=== PATIENT | female | born 1955 | race Caucasian/White ===

== ENCOUNTER 2016-09-16 12:03 | Inpatient (IN) | payer OTHER, MEDICAID ==
[~2016-09-16] VITALS: Ht 165.1 cm; Wt 90.3 kg
[~2016-09-16 12:03] MED LIST: HYDR-1189 PO
[2016-09-16 12:20] VITALS: BP_SYST 166
--- NOTE | 2016-09-16 12:38 | NUR ---
Direct Admit Patient received from Dr Muñoz's office. Patient admitted with diagnosis of Cellulitis of the right hand, Renal Failure , Hyperkalemia . Patient is awake, alert, oriented X 3. Patient oriented to hospital room, call light, toileting, pain management and safety-teach back done. Patient informed that Kathy RN will be nurse and that their room number is 119B. Personal belongings checked and Belongings List documented. Call light within reach.
--- NOTE | 2016-09-16 13:24 | NUR ---
Patient photos taken of all skin issues. Patient IV entered left hand 22g. SL. Success at 1st attempt.
--- NOTE | 2016-09-16 13:31 | NUR ---
Dr Muñoz paged for orders
[2016-09-16] MEDS ORDERED: CLON0.5T4 PO (14:21)
[2016-09-16] MEDS ORDERED: GABA-531 PO (14:22)
[2016-09-16] MEDS ORDERED: MELO15TA13 PO (14:22)
[2016-09-16] MEDS ORDERED: SERT-131 PO (14:23)
--- NOTE | 2016-09-16 15:23 | NUR ---
Dr Toni bailon
--- NOTE | 2016-09-16 15:26 | NUR ---
Consult was called Re: Renal Failure spoke with Norma from Dr Taylor office .
[2016-09-16] MEDS ORDERED: ACETAMINOPHEN 325 MG TABLET PO PRN (15:30)
[2016-09-16] MEDS ORDERED: MILK OF MAGNESIA 30 ML UDC PO PRN ×2 (15:30)
--- NOTE | 2016-09-16 15:32 | NUR ---
Consult was called Re:Cellulitis of both Hands spoke with Jennifer from Dr Womack office .
[2016-09-16] MEDS: HYDROcodone/ACETAMIN 5-325 MG TAB (NORCO/ VICODIN) PO PRN ×2 (15:40→22:17)
--- NOTE | 2016-09-16 15:46 | NUR ---
senior caregiver Norma left and stated that patients senior caregiver ( Her boss from the company, [employer] ) that takes care of the patient will be calling.
[2016-09-16] MEDS ORDERED: CLINDAMYCIN 600 mg/50mL D5W 50 ML IV ONE (16:00)
[2016-09-16 16:02] LABS: BASOPHILS # (AUTO) 0.1 K/uL (0.0-0.2); EOSINOPHILS # (AUTO) 0.2 K/uL (0.0-0.4); MEAN CORPUSCULAR HGB CONC 33 % (32-36); MEAN CORPUSCULAR VOLUME 86 fL (79.0-98.0); MONOCYTES # (AUTO) 0.4 K/uL (0.0-1.0); NEUTROPHILS # (AUTO) 3.9 K/uL (1.8-7.7)
[2016-09-16 16:06] LABS: BASOPHILS % (AUTO) 1.9 % (0.0-2.0); EOSINOPHILS % (AUTO) 3.5 % (0.0-4.0); HEMATOCRIT 33.9 % (36-48); HEMOGLOBIN 11.2 g/dL (12.0-16.0); LYMPHOCYTES # (AUTO) 0.9 K/uL (1.0-5.5); MEAN CORPUSCULAR HEMOGLOBIN 29 pg (27-31); MONOCYTES % (AUTO) 7.1 % (1.7-9.3); NEUTROPHILS % (AUTO) 70.5 % (40.0-70.0); PLATELET COUNT (AUTO) 234 K/uL (130-430); RED BLOOD CELL COUNT(AUTO) 3.93 MIL/uL (4.2-6.2); RED CELL DISTRIBUTION WIDTH 13.9 % (9.0-15.0); WHITE BLOOD COUNT (AUTO) 5.5 K/uL (4.8-10.8)
--- NOTE | 2016-09-16 16:10 | NUR ---
Banerjee Catheter inserted and urine sample sent to lab BANERJEE CATH: # 16 FR Banerjee catheter with 10 cc bulb inserted with use of sterile technique. Bulb inflated with 10 cc sterile water. Immediate return of 200ml clear yellow urine noted. Bedside drainage bag placed below level of bladder. Urine sample collected and sent to lab at 1615. Pt tolerated procedure well.
[2016-09-16 16:21] LABS: ALBUMIN 3.5 g/dL (3.4-4.8); CALCIUM 9.5 mg/dL (8.4-11.0); CREATININE 1.86 mg/dL (0.55-1.30); POTASSIUM 4.8 mmol/L (3.5-5.1); TOTAL BILIRUBIN 0.2 mg/dL (0.0-1.0); TOTAL PROTEIN, SERUM 6.6 g/dL (6.4-8.3)
[2016-09-16 16:26] LABS: BILIRUBIN,URINE NEGATIVE (NEGATIVE); BLOOD, URINE NEGATIVE (NEGATIVE); CLARITY/URINE CLEAR (CLEAR); COLOR,URINE YELLOW (YELLOW); GLUCOSE,URINE NEGATIVE (NEGATIVE); KETONES,URINE NEGATIVE (NEGATIVE); LEUKOCYTE ESTERASE ,URINE NEGATIVE (NEGATIVE); NITRITE, URINE NEGATIVE (NEGATIVE); PH,URINE 7.5 (5.0-8.0); PROTEIN URINE NEGATIVE (NEGATIVE); UROBILINOGEN,URINE 0.2 (0.2-1.0)
--- NOTE | 2016-09-16 16:35 | NUR ---
Patient complaining of pain to her left hip. States she wants "Dilaudid" I Informed her that i asked Dr Muñoz when he made rounds and all he wanted her to have was the Gay. as ordered. Pt request i call MD and ask for a "pain shot."
--- NOTE | 2016-09-16 17:04 | NUR ---
DR ESPINOZA CALLED BACK. INFORMED OF UNRELIEVED PAIN WITH THE NORCO AND PATIENTS REQUEST FOR "PAIN SHOT' NO NEW ORDERS RECEIVED. OK TO GIVE ONCE DOSE NOW OF THE KLONOPIN.
[2016-09-16 17:53] VITALS: BP_SYST 139
--- NOTE | 2016-09-16 18:32 | NUR ---
PT REFUSING TO HAVE THE RENAL US DONE AT THIS TIME, SAYS SHE WANTS IT DONE TOMORROW BECAUSE SHE WANTS PAIN MEDICATION , WHICH SHE TOLD ME ABOUT. I INFORMED HER THAT NO NEW MEDICATION ORDERS WERE GIVEN AT THIS TIME. INFORMED HER THAT WE CAN ADMINISTER THE KLONOPIN AT THIS TIME PER DR ESPINOZA. WILL TRY AND CONVINCE HER TO GET IT DONE.
[2016-09-16] MEDS: clonazePAM 0.5 MG TABLET PO SCH (18:38)
--- NOTE | 2016-09-16 18:39 | NUR ---
Closing note Patient refused to have the US renal at this time, due to pain, administered Klonipin earlier than 2100 as pt stated she had not had any today, and asked dr Muñoz who stated that she can get it earlier. Pt otherwise stable.
--- NOTE | 2016-09-16 18:59 | NUR ---
WOUND CARE Right hand wound cleansed with NS and pat dry. applied Bactorban ointment as ordered by dr Muñoz. covered with foam dressing.
--- NOTE | 2016-09-16 19:45 | NUR ---
OPENING NOTE Pt. and report received from day shift nurse. Pt. is resting quietly in bed with eyes closed. Respirations are even and unlabored with visible chest rise and fall. No s/s of acute distress. IV site to left f/a is dry and intact with no s/s of infiltration at this time. Haider catheter is intact, draining urine by gravity. Safety precautions in place. Bed alarm is on. Will continue to monitor.
[2016-09-16 20:00] VITALS: BP_SYST 136
--- NOTE | 2016-09-16 20:39 | NUR ---
DR. MUÑOZ CALLED RE: LABS Dr. Muñoz asked about pt.'s labs; Pt.'s sodium level of 134, potassium 4.8, bun 26 and creatinine of 1.[address] Muñoz. asked if Dr. Taylor, consult, has seen pt., I reported he was called but has not see pt. yet. Dr. Muñoz gave no new orders.
[2016-09-16] MEDS: LACTOBACILLUS RHAMNOSUS GG 1 CAP CAPSULE PO SCH (21:31)
[2016-09-16] MEDS: GABAPENTIN 300 MG CAPSULE PO SCH (21:31)
[2016-09-16] MEDS: SERTRALINE HCL 50 MG TABLET PO SCH (21:32)
[2016-09-16] MEDS: TEMAZEPAM 15 MG CAPSULE PO PRN (21:32)
[2016-09-16] MEDS: MUPIROCIN 2% TOPICAL OINTMENT 22 GM TP SCH (21:39)
--- NOTE | 2016-09-16 21:49 | NUR ---
DUE MEDS/BACTROBAN/SCDS Due meds administered as ordered. Pt. requested Restoril 15mg PO 1 tab as ordered PRN for insomnia. Administered as ordered. See EMAR. Wound care done to right hand; area cleansed with NS and bactroban applied to affected area. Pt. tolerated well. No s/s of acute distress. Educated and encouraged pt. to use call light for needs. Educated pt. on fall risk and bed alarm. Bed alarm on. Call light moved to right hand. Safety precautions are in place. Bilateral SCDS applied as ordered. Will continue to monitor.
--- NOTE | 2016-09-16 22:17 | NUR ---
PAIN Late entry due to pt. care. Pt. c/o pain to back; pt. given Wainwright 5/325mg 1 tab PO as ordered PRN for moderate pain. See EMAR. Educated pt. regarding medication and s/e. Educated pt. that medication increases her risk for falls and to use call light for needs. Pt. verbalized understanding. Safety and fall precautions in place. Bed alarm on. Call light to right hand. Will continue to monitor.
[2016-09-16] MEDS: CLINDAMYCIN 600 mg/50mL D5W 50 ML IV SCH (23:48)
[2016-09-16 23:53] VITALS: BP_SYST 124
--- NOTE | 2016-09-16 23:58 | NUR ---
CLEOCIN Due cleocin IVPB administered as ordered. Pt. is resting quietly in bed with no s/s of acute distress. Safety precautions in place. Bed alarm on. Call light to right hand. Will continue to monitor.
--- NOTE | 2016-09-17 02:22 | NUR ---
RESTING Pt. is resting quietly in bed with eyes closed. Respirations are even and unlabored with visible chest rise and fall. No s/s of acute distress. Safety and fall precautions are in place. Bed alarm is on. Call light is to pt.'s right hand side. Will continue to monitor.
[2016-09-17 04:15] VITALS: BP_SYST 140
--- NOTE | 2016-09-17 04:23 | NUR ---
RESTING Pt. is resting quietly in bed with eyes closed. Respirations are even and unlabored with visible chest rise and fall. No s/s of acute distress. Safety and fall precautions are in place. Call light to right hand. Bed alarm on. Will continue to monitor.
[2016-09-17] MEDS: CLINDAMYCIN 600 mg/50mL D5W 50 ML IV SCH ×3 (05:16→17:22)
[2016-09-17] MEDS: HYDROcodone/ACETAMIN 5-325 MG TAB (NORCO/ VICODIN) PO PRN ×4 (05:46→23:00)
[2016-09-17 07:45] VITALS: BP_SYST 134
--- NOTE | 2016-09-17 08:00 | NUR ---
OPENING NOTES, PATIENT IN BED, PATIENT IS AAO3, NO C/O PAIN, PATIENT WAS GIVEN PAIN MED AT 0546 AM. NO SOB, NO DISTRESS. PT HAS EDEMATOUS ARMS AND WOUND ON ARMS. IV ACCESS INTACT. INFUSING WELL. CALL LIGHT IN REACH. BED IN LOW POSITION. BANERJEE AT FOOT OF BED. WILL CONT TO MONITOR.
[2016-09-17] MEDS: clonazePAM 0.5 MG TABLET PO SCH ×2 (08:33→21:31)
[2016-09-17] MEDS: GABAPENTIN 300 MG CAPSULE PO SCH ×2 (08:33→21:31)
[2016-09-17] MEDS: LACTOBACILLUS RHAMNOSUS GG 1 CAP CAPSULE PO SCH ×2 (08:33→21:31)
[2016-09-17] MEDS: SERTRALINE HCL 50 MG TABLET PO SCH ×2 (08:34→21:31)
[2016-09-17] MEDS: MUPIROCIN 2% TOPICAL OINTMENT 22 GM TP SCH ×2 (08:44→21:00)
[2016-09-17] MEDS ORDERED: MELOXICAM 7.5 MG TABLET PO SCH (09:00)
--- NOTE | 2016-09-17 09:09 | NUR ---
Nutrition Update Cm Scale 17 noted. Pt admitted for renal failure, hyperkalemia. Diet: renal standard BMI: 33.1 kg/m2 RD to follow per nutrition care standards.
--- NOTE | 2016-09-17 10:00 | NUR ---
ROUNDING NOTES, PATIENT IN BED, C/O PAIN ON R SHOULDER 08/09, TOLD PT THAT PAIN MED IS NOT DUE YET. NO SOB, NO DISTRESS. IV ACCESS INTACT. INFUSING WELL. CALL LIGHT IN REACH. BED IN LOW POSITION. BANERJEE AT FOOT OF BED. WILL CONT TO MONITOR.
--- NOTE | 2016-09-17 12:00 | NUR ---
ROUNDING NOTES, PATIENT IN BED, C/O PAIN ON R SHOULDER 02/08, TOLD PT THAT PAIN MED IS NOT DUE YET AND THAT WE HAVE PAGE DR ESPINOZA,. NO SOB, NO DISTRESS. IV ACCESS INTACT. INFUSING WELL. CALL LIGHT IN REACH. BED IN LOW POSITION. BANERJEE AT FOOT OF BED. WILL CONT TO MONITOR.
[2016-09-17 12:41] VITALS: BP_SYST 135
[2016-09-17] MEDS ORDERED: FUROSEMIDE 20 MG/2 ML VIAL IVP ONE (12:45)
--- NOTE | 2016-09-17 14:34 | NUR ---
dr rodriguez rounding dr chung was here and spoke with patient. told md that patient is still complaining of pain even with the pain medication given.
--- NOTE | 2016-09-17 14:37 | NUR ---
WOUND EVALUATION: Wound Consult received from Dr. Muñoz. Thank you, Dr. Muñoz, for the consult. Patient received in a [place] Bed with a [place] Isoflex ZIGGY mattress, awake, alert, and oriented. Patient is unable to turn independently. Cm Score is a 17. Past Medical History: Hypertension, Chronic Kidney Disease, Depression, Advanced Degenerative Joint Disease, Left total hip replacement. Recent Labs: WBC 5.5, RBC 3.93, Hemoglobin 11.2, Hematocrit 33.9, sodium 134, BUN 26, creatinine 1.86, GFR 19, Glucose 115. No microbiology reports. Intrinsic factors that delay wound healing: Chronic kidney disease. Extrinsic factors that delay wound healing: Decreased mobility. Wound Assessment: 1) Right Dorsal Hand: Wound, present on admission. Wound bed is 90% black eschar, 10% yellow slough. No odor, scant yellow purulent drainage. juliana-wound intact. Measures 2.1 cm x 1.8 cm x 0.5 cm. Recommend: Cleanse wound with normal saline. Place sure prep onto juliana-wound. Put Venelex ointment onto wound bed. Cover with foam dressing. Perform wound care daily, and as needed for dressing soiling or dislodgement. 2) Bilateral Forearms: Multiple dry scabs with black eschar. No odor, no drainage. Dry, stable. Recommend: No dressings needed. Continue to monitor sites every shift. Also recommend: Encourage and assist patient as needed with repositioning every 2 hours with pillow support and off-load pressure areas with pillows for pressure re-distribution. Perform skin care and monitor skin integrity Q shift. Use moisture barrier cream on buttocks and other moisture susceptible areas QID and as needed for soiling. Addendum: 09/17/16 at 1452 by Monty Ayers RN Juliana-wound erythematous for Wound 1).
--- NOTE | 2016-09-17 16:00 | NUR ---
CRISTINE NOTES, PATIENT IN BED, COMPLAIN OF PAIN 5/10, WILL MEDICATE WHEN DUE. TOLD MD THAT PAIN IS NOT RESOLVED WITH CURRENT PAIN MED, NO NEW ORDERS GIVEN. WILL CONT TO MONITOR.
[2016-09-17 16:53] VITALS: BP_SYST 129
--- NOTE | 2016-09-17 16:53 | NUR ---
DC Planning: Met with pt at bedside for leadership rounding-pt requested me to call her caregiver Latia and let her know Dr. Muñoz might discharge her tomorrow. I explained to Latia that Dr. Muñoz will evaluate her tomorrow and make the decision after he evaluates her. I did call Latia at pt's request at #[phone] and gave her update that pt requested me to call her and that Dr. Muñoz will see pt tomorrow. Latia indicates pt has appointment with tree topper Dr. Taylor at the end of the month also, and aware there is nephrology consult for pt here inpt. ALTON LONGO
[2016-09-17] MEDS ORDERED: VANCOMYCIN HCL 750 MG in NS 250 ML IV ONE (18:30)
--- NOTE | 2016-09-17 18:30 | NUR ---
CLOSING NOTES, PATIENT REMAINED ALERT AND ORIENTED, NO UNTOWARD INCIDENT THIS SHIFT. BANERJEE PATENT AND INTACT. IN ACCESS CHANGED .ALL MED OFFERED AND TAKEN. PAIN MEDS GIVEN REQUESTED. SAFETY PRECAUTION IN PLACE. WILL ENDORSE TO NIGHT RN.
[2016-09-17 19:00] VITALS: BP_SYST 141
--- NOTE | 2016-09-17 19:00 | NUR ---
OPENING NOTES REPORT GIVEN AT BEDSIDE. PATIENT AOX4. PATIENT SITTING UPRIGHT AND SMILING. NO S/S OF ACUTE DISTRESS NOTED. BANERJEE PATENT AND INTACT. IV PATENT AND TKO. BED IN LOWEST POSITION, CALL LIGHT WITHIN REACH. WILL CONTINUE TO MONITOR.
[2016-09-17] MEDS ORDERED: VANCOMYCIN HCL 500 MG in NS 100 ML IV ONE (20:30)
[2016-09-17] MEDS: BALSAM PERU/CASTOR OIL 60 GM OINT...G. TP SCH (21:00)
[2016-09-17] MEDS: TEMAZEPAM 15 MG CAPSULE PO PRN (21:32)
[2016-09-17] MEDS ORDERED: VANCOMYCIN HCL 500 MG/VIAL IV ONE (22:01)
--- NOTE | 2016-09-17 23:05 | NUR ---
PAIN PATIENT COMPLAINED OF PAIN 10/10, MEDICATION GIVEN ORDERED.
[2016-09-17 23:51] VITALS: BP_SYST 134
[2016-09-18] MEDS ORDERED: VANCOMYCIN HCL 500 MG/VIAL IV ONE (00:27)
[2016-09-18] MEDS: CLINDAMYCIN 600 mg/50mL D5W 50 ML IV SCH ×5 (00:56→23:44)
--- NOTE | 2016-09-18 01:13 | NUR ---
ROUNDS PATIENT SLEEPING WITH VISIBLE RISE AND FALL OF CHEST, AUDIBLY SNORING. NO S/S OF ACUTE DISTRESS NOTED. IV ANTIBIOTICS INFUSING WITH NO SIGNS OF INFILTRATION. FALL PRECAUTIONS IN PLACE, CALL LIGHT WITHIN REACH. WILL CONTINUE TO MONITOR.
--- NOTE | 2016-09-18 03:05 | NUR ---
ROUNDS PATIENT SLEEPING, STABLE, NO CHANGE IN CONDITION.
[2016-09-18 04:00] VITALS: BP_SYST 123
--- NOTE | 2016-09-18 05:00 | NUR ---
ROUNDS PATIENT IS SLEEPING, NO CHANGE IN CONDITION.
[2016-09-18] MEDS: HYDROcodone/ACETAMIN 5-325 MG TAB (NORCO/ VICODIN) PO PRN ×4 (06:18→23:44)
--- NOTE | 2016-09-18 06:49 | NUR ---
CLOSING NOTES PATIENT IS AWAKE AND IN GOOD SPIRITS RESTING COMFORTABLY. WOUND CARE PERFORMED ON CELLULITIS OF HANDS, SLIGHT WEEPING. IV PATENT WITHOUT SIGNS OF INFILTRATION. NO ACUTE S/S OF DISTRESS NOTED. ALL NEEDS MET THROUGHOUT THE SHIFT. FALL PRECAUTIONS IN PLACE, CALL LIGHT WITHIN REACH. WILL ENDORSE CARE TO DAYSHIFT NURSE.
[2016-09-18 07:27] LABS: BASOPHILS % (AUTO) 0.5 % (0.0-2.0); EOSINOPHILS # (AUTO) 0.3 K/uL (0.0-0.4); EOSINOPHILS % (AUTO) 4.2 % (0.0-4.0); HEMATOCRIT 37.9 % (36-48); HEMOGLOBIN 12.5 g/dL (12.0-16.0); LYMPHOCYTES # (AUTO) 1.2 K/uL (1.0-5.5); LYMPHOCYTES % (AUTO) 18.5 % (20.5-51.5); MEAN CORPUSCULAR HEMOGLOBIN 28 pg (27-31); MEAN CORPUSCULAR HGB CONC 33 % (32-36); MEAN CORPUSCULAR VOLUME 86 fL (79.0-98.0); MONOCYTES # (AUTO) 0.4 K/uL (0.0-1.0); MONOCYTES % (AUTO) 6.7 % (1.7-9.3); NEUTROPHILS # (AUTO) 4.5 K/uL (1.8-7.7); NEUTROPHILS % (AUTO) 70.1 % (40.0-70.0); PLATELET COUNT (AUTO) 279 K/uL (130-430); RED BLOOD CELL COUNT(AUTO) 4.41 MIL/uL (4.2-6.2); RED CELL DISTRIBUTION WIDTH 14.2 % (9.0-15.0); WHITE BLOOD COUNT (AUTO) 6.4 K/uL (4.8-10.8)
[2016-09-18 07:38] LABS: ALBUMIN 3.6 g/dL (3.4-4.8); CALCIUM 9.3 mg/dL (8.4-11.0); CREATININE 2.05 mg/dL (0.55-1.30); POTASSIUM 4.2 mmol/L (3.5-5.1); TOTAL BILIRUBIN 0.2 mg/dL (0.0-1.0); TOTAL PROTEIN, SERUM 7.3 g/dL (6.4-8.3)
[2016-09-18 07:43] VITALS: BP_SYST 132; BP_SYST 149
[2016-09-18] MEDS: clonazePAM 0.5 MG TABLET PO SCH ×2 (08:30→20:11)
[2016-09-18] MEDS: GABAPENTIN 300 MG CAPSULE PO SCH ×2 (08:30→20:11)
[2016-09-18] MEDS: SERTRALINE HCL 50 MG TABLET PO SCH ×2 (08:30→20:12)
[2016-09-18] MEDS: LACTOBACILLUS RHAMNOSUS GG 1 CAP CAPSULE PO SCH ×2 (08:30→20:11)
[2016-09-18] MEDS: FUROSEMIDE 20 MG/2 ML VIAL IVP SCH (08:30)
[2016-09-18] MEDS: MUPIROCIN 2% TOPICAL OINTMENT 22 GM TP SCH ×2 (08:42→20:12)
[2016-09-18] MEDS: BALSAM PERU/CASTOR OIL 60 GM OINT...G. TP SCH ×2 (08:42→20:13)
--- NOTE | 2016-09-18 10:15 | NUR ---
PATIENT REQUEST FOR BENADRYL FOR ITCHING PER CHARGE NURSE. WILL NOTIFY MD ON ROUNDS. PATIENT SAYS SHE HAS A GOOD PAIN MEDICATION, NORCO FOR HER SHOULDER AND BACK PAIN. SITE OF DRESSING ON RIGHT HAND CHANGED WITH INTERVENTION PER CARE PLAN.
[2016-09-18 12:00] VITALS: BP_SYST 115
--- NOTE | 2016-09-18 12:09 | NUR ---
Patient rounds for follow up on norco dose. Patient pain decreased. Says she is ready to go home.
--- NOTE | 2016-09-18 13:53 | NUR ---
Rounds to patient. Needs met at this time. Snack provided. IV site check. Verified antibiotic dose.
--- NOTE | 2016-09-18 15:54 | NUR ---
Rounds to patient. Offered ice and heat until pm norco can be given around 1800. Patient notes her dose would be do at 4pm. Will evaluate for time.
[2016-09-18 16:22] VITALS: BP_SYST 132
--- NOTE | 2016-09-18 16:31 | NUR ---
PATIENT ROUNDS. PATIENT FEELING ANXIOUS AT THIS TIME WITH PAIN. GIVEN PRN FOR PAIN REQUESTED.
--- NOTE | 2016-09-18 17:03 | NUR ---
Call to patient attending MD per request of patient. MD Muñoz call and will round soon. Notified patient. Put on video of kittens playing to soothe patient concerns about her health.
[2016-09-18] MEDS ORDERED: VANCOMYCIN HCL 1,000 MG in NS 250 ML IV SCH (18:00)
--- NOTE | 2016-09-18 18:31 | NUR ---
PATIENT ROUNDS AND GIVEN INFORMATION FROM DOCTOR GRISELDA'S NOTE THAT KIDNEYS ARE IMPROVING. PATIENT ATTRIBUTES THIS TO LASIX. PATIENT CALMING DOWN AFTER WATCHING VIDEO OF KITTENS AND HEARING ABOUT HER KIDNEY HEALTH.
--- NOTE | 2016-09-18 19:23 | NUR ---
Handoff report for noc nurse.
[2016-09-18 19:42] VITALS: BP_SYST 128
--- NOTE | 2016-09-18 19:46 | NUR ---
Initial Notes Received patient laying in bed, awake, alert, oriented, anxious. Patient denies any acute distress or pain at this time. Vital signs stable. Breathing is even and unlabored on room air. IV site patent/clean/dry. Wound noted to right hand, dressing clean/dry/intact. Haiedr draining yellow urine to gravity. Educated patient on use of call light for assistance and fall precautions, patient verbalized understanding. Call light in hand, fall precautions in place. Will continue to monitor.
[2016-09-18] MEDS: TEMAZEPAM 15 MG CAPSULE PO PRN (21:28)
--- NOTE | 2016-09-18 22:00 | NUR ---
Rounds Patient resting in bed bed, awake. Patient denies any acute distress or pain at this time. Dr. Muñoz was in to see patient during MD rounds. Haider discontinued per MD order, tip intact, patient tolerated well. Informed patient to notify nurse once patient voids, patient verbalized understanding. Needs addressed. Call light in hand, will continue to monitor.
--- NOTE | 2016-09-19 | NUR ---
Rounds Patient resting in bed with eyes closed, easily aroused. Patient denies any acute distress or pain at this time. Breathing is even and unlabored. IV site patent/clean/dry. Needs addressed. Call light in hand, fall precautions in place. Will continue to monitor.
[2016-09-19 00:15] VITALS: BP_SYST 142
--- NOTE | 2016-09-19 02:00 | NUR ---
Round Patient resting in bed with eyes closed. No acute distress noted, breathing is even and unlabored. Call light in hand, will continue to monitor.
--- NOTE | 2016-09-19 04:26 | NUR ---
Rounds Patient resting in bed, awake. Patient denies any acute distress or pain at this time. Breathing is even and unlabored. Patient noted she has voided since removal of Haider catheter. Needs addressed. Call light in hand, will continue to monitor.
[2016-09-19 05:12] VITALS: BP_SYST 122
[2016-09-19] MEDS: CLINDAMYCIN 600 mg/50mL D5W 50 ML IV SCH ×3 (05:38→17:55)
[2016-09-19] MEDS: HYDROcodone/ACETAMIN 5-325 MG TAB (NORCO/ VICODIN) PO PRN ×3 (05:39→17:00)
--- NOTE | 2016-09-19 06:37 | NUR ---
Closing Notes Patient resting in bed with eyes closed, easily aroused. Patient denies any acute distress or pain at this time. Breathing is even and unlabored. IV site patent/clean/dry, no S/S infection/infiltration noted. All needs addressed throughout shift. Call light in hand, fall precautions in place. Will continue to monitor for changes and safety, and endorse all patient care/needs to oncoming nurse.
[2016-09-19 06:55] LABS: CALCIUM 9.2 mg/dL (8.4-11.0); CREATININE 2.1 mg/dL (0.55-1.30); POTASSIUM 4.3 mmol/L (3.5-5.1)
[2016-09-19 06:59] LABS: BASOPHILS % (AUTO) 0.6 % (0.0-2.0); EOSINOPHILS # (AUTO) 0.4 K/uL (0.0-0.4); EOSINOPHILS % (AUTO) 7.3 % (0.0-4.0); HEMATOCRIT 38.5 % (36-48); HEMOGLOBIN 12.7 g/dL (12.0-16.0); LYMPHOCYTES # (AUTO) 1.1 K/uL (1.0-5.5); LYMPHOCYTES % (AUTO) 20.3 % (20.5-51.5); MEAN CORPUSCULAR HEMOGLOBIN 29 pg (27-31); MEAN CORPUSCULAR HGB CONC 33 % (32-36); MEAN CORPUSCULAR VOLUME 87 fL (79.0-98.0); MONOCYTES # (AUTO) 0.4 K/uL (0.0-1.0); MONOCYTES % (AUTO) 7.3 % (1.7-9.3); NEUTROPHILS # (AUTO) 3.4 K/uL (1.8-7.7); NEUTROPHILS % (AUTO) 64.5 % (40.0-70.0); PLATELET COUNT (AUTO) 271 K/uL (130-430); RED BLOOD CELL COUNT(AUTO) 4.43 MIL/uL (4.2-6.2); RED CELL DISTRIBUTION WIDTH 14.3 % (9.0-15.0); WHITE BLOOD COUNT (AUTO) 5.4 K/uL (4.8-10.8)
--- NOTE | 2016-09-19 08:00 | NUR ---
initial notes rec patient awake alert with hob elevated. ivl on the l forearm intact. no infiltration noted.denies chest pain at this time. bed in low position and side rails up and ,call light within reached and knows when to call for assists. will continue to monitor patient.
[2016-09-19 08:10] VITALS: BP_SYST 141
[2016-09-19] MEDS: clonazePAM 0.5 MG TABLET PO SCH ×2 (09:24→20:42)
[2016-09-19] MEDS: SERTRALINE HCL 50 MG TABLET PO SCH ×2 (09:24→20:42)
[2016-09-19] MEDS: GABAPENTIN 300 MG CAPSULE PO SCH ×2 (09:24→20:43)
[2016-09-19] MEDS: LACTOBACILLUS RHAMNOSUS GG 1 CAP CAPSULE PO SCH ×2 (09:24→20:42)
[2016-09-19] MEDS: FUROSEMIDE 20 MG/2 ML VIAL IVP SCH (09:29)
[2016-09-19] MEDS: BALSAM PERU/CASTOR OIL 60 GM OINT...G. TP SCH (09:29)
--- NOTE | 2016-09-19 10:00 | NUR ---
rounds resting comfortably at this time. no sob noted.
--- NOTE | 2016-09-19 12:00 | NUR ---
rounds due meds given as ordered. resting comfortably.
[2016-09-19 12:20] VITALS: BP_SYST 131
--- NOTE | 2016-09-19 16:00 | NUR ---
rounds no sob noted. watching tv.
[2016-09-19 16:54] VITALS: BP_SYST 138
[2016-09-19] MEDS ORDERED: CLIN-77 PO (17:08)
[2016-09-19] MEDS ORDERED: MUPI1OIN4 TP (17:12)
--- NOTE | 2016-09-19 18:00 | NUR ---
rounds seen by dr mckeon and with order to be d.cd/ wound care on the r hand was done. no sob noted.
--- NOTE | 2016-09-19 18:30 | NUR ---
closing notes friend was called and will come and hand picker patient at 1999. no sob noted. ambulating on the hallway.
[2016-09-19 18:49] VITALS: BP_SYST 138
--- NOTE | 2016-09-19 20:00 | NUR ---
ROUNDS PATIENT SITTING UP IN THE CHAIR, NOT IN DISTRESS, VITALS STABLE, DENIES ANY PAIN AND DISCOMFORT AT THIS TIME. PATIENT READY FOR DISCHARGE HOME ORDERED, WAITING FOR FAMILY TO PICK HER UP. DISCHARGE INSTRUCTIONS DONE AND PATIENT VERBALIZED UNDERSTANDING. PATIENT BELONGINGS ALREADY CHECKED BY A.M. NURSE. ALL NEEDS ATTENDED TO. CALL LIGHT PLACED WITH PATIENT.
--- NOTE | 2016-09-19 21:30 | NUR ---
CLOSING NOTES PATIENT DISCHARGED TO HOME ORDERED VIA WHEELCHAIR TO THE OUTSIDE WITH STABLE VITAL SIGNS. DENIES ANY PAIN AND DISCOMFORT AT THIS TIME. IV D/CD, ALL BELONGINGS CHECKED.
== END 2016-09-19 21:30 | disposition home or self-care (01) | DRG 602 ==
LOC: STU 12:03 → SMU 09-18 20:59
PROVIDERS: ADMIT Family Medicine; ATTEND Family Medicine
DX: L03.114 Cellulitis of left upper limb (principal); N17.0 Acute kidney failure with tubular necrosis; L03.113 Cellulitis of right upper limb; E11.622 Type 2 diabetes mellitus with other skin ulcer; L98.499 Non-pressure chronic ulcer of skin of other sites with unspecified severity; N18.3 Chronic kidney disease, stage 3 (moderate); I12.9 Hypertensive chronic kidney disease with stage 1 through stage 4 chronic kidney disease, or unspecified chronic kidney disease; E03.9 Hypothyroidism, unspecified; E11.22 Type 2 diabetes mellitus with diabetic chronic kidney disease; M19.90 Unspecified osteoarthritis, unspecified site; F32.9 Major depressive disorder, single episode, unspecified; G89.4 Chronic pain syndrome; Z96.642 Presence of left artificial hip joint; Z87.891 Personal history of nicotine dependence; Z88.6 Allergy status to analgesic agent; Z88.8 Allergy status to other drugs, medicaments and biological substances; Z86.010 Personal history of colon polyps; Z87.442 Personal history of urinary calculi; Z79.899 Other long term (current) drug therapy
CPT/HCPCS: 36415; 76770; 80048; 80053; 81003; 85025; 87081; J1940; J3370; J3490; J7050; J7060

== ENCOUNTER 2018-11-29 16:30 | Inpatient (IN) | payer OTHER, MEDICAID ==
[~2018-11-29] VITALS: Ht 165.1 cm; Wt 103.5 kg
[~2018-11-29 16:30] MED LIST changes: +CLIN300C11 PO; +CLON0.5T12 PO; +GABA-531 PO; +MUPI1OIN4 TP; +SERT-131 PO
--- NOTE | 2018-11-29 17:15 | NUR ---
Note Pt came to floor/room from admission office ambulatory with caregiver by her side and admitting staff member at this time. Pt was oriented to room and nursing routines/procedures. Call light within reach. Pt was given hospital gown and tele unit was attached at this time as well. Pt's caregiver will take all pt's belongings home except thermos flask and cell phone at this time. Admission assessment started at this time. Questions/concerns were answered at this time. Admission questions H&P were also answered by pt's caregiver when pt did not remember information. Pt has large bruise under right arm which is tender and sore to touch. Bruise very purple.
[2018-11-29 17:30] VITALS: BP_SYST 119
[2018-11-29] MEDS ORDERED: BENZ2AMP PO (17:53)
[2018-11-29] MEDS ORDERED: FESO4TAB PO (17:53)
[2018-11-29] MEDS ORDERED: ARIP20TA4 PO (17:53)
--- NOTE | 2018-11-29 18:00 | NUR ---
ADMISSION: RECEIVED PT FROM HOME, DIRECT ADMIT, DX: RISK FOR FLUID VOLUME DEFICIT, R/T ACUTE RENAL FAILURE, PT IS A/A/OX4, VSS, SR ON TELEMONITOR, AFEBRILE, BREATHING UNLABORED, O2 SAT=98%, IV 24G INSERTED TO RIGHT HAND X 3 ATTEMPTS, ORIENTED TO UNIT, MEAT COOLER AT BEDSIDE, CALL LIGHT PLACED WITHIN REACH, WILL CON'T TO MONITOR AND ASSESS.
--- NOTE | 2018-11-29 18:00 | NUR ---
Note Report was given to Crys LONGO for continuation of care. Dr Muñoz called with orders for diet and diagnosis. Labs drawn stat and Dr Muñoz will come in to see pt this evening. Several attempts were made to start IV - all unsuccessful at this time. Call light within reach. Pt's credit risk officer at bedside since admission to floor.
--- NOTE | 2018-11-29 18:33 | NUR ---
Paged Dr. Muñoz
--- NOTE | 2018-11-29 18:50 | NUR ---
VISIT: AT BEDSIDE FOR ASSESSMENT OF PT, NEW ORDERS GIVEN, WILL CON'T WITH POC.
[2018-11-29 19:00] VITALS: BP_SYST 116
--- NOTE | 2018-11-29 19:00 | NUR ---
END OF SHIFT: PT REMAINS STABLE, NEEDS MET, NO CHANGES NOTED AT THIS TIME, CALL LIGHT WITHIN REACH, WILL ENDORSE TO AMMONIA PRINT OPERATOR NURSE.
[2018-11-29 19:07] LABS: BASOPHILS # (AUTO) 0.1 K/uL (0.0-0.2); BASOPHILS % (AUTO) 1.1 % (0.0-2.0); EOSINOPHILS # (AUTO) 0.1 K/uL (0.0-0.4); EOSINOPHILS % (AUTO) 2.2 % (0.0-4.0); HEMATOCRIT 36.4 % (36-48); HEMOGLOBIN 12.2 g/dL (12.0-16.0); LYMPHOCYTES # (AUTO) 0.9 K/uL (1.0-5.5); LYMPHOCYTES % (AUTO) 13.2 % (20.5-51.5); MEAN CORPUSCULAR HEMOGLOBIN 30 pg (27-31); MEAN CORPUSCULAR HGB CONC 33 % (32-36); MEAN CORPUSCULAR VOLUME 89 fL (79.0-98.0); MONOCYTES # (AUTO) 0.4 K/uL (0.0-1.0); MONOCYTES % (AUTO) 6.5 % (1.7-9.3); PLATELET COUNT (AUTO) 218 K/uL (130-430); RED CELL DISTRIBUTION WIDTH 16.7 % (9.0-15.0); WHITE BLOOD COUNT (AUTO) 6.5 K/uL (4.8-10.8)
--- NOTE | 2018-11-29 19:15 | NUR ---
change of shift.pt.presrn quiescetna ffctc;claudia.viewing tv programming.corrosion control engineer in the room.p.tprsetn genral [email or web address] recent fall hisptry;pt.prsrn ecchymosis; :location;rt.forwrm;bicpet;large diameyer.absent denuded skin.iv acces ;loaction;#24g;rt.wrist;inner aspect. pttio submit to midline:placement.call light/telephone w/in the reach of the pt.
[2018-11-29 19:24] LABS: CALCIUM 8.9 mg/dL (8.4-11.0); CREATININE 2.2 mg/dL (0.55-1.30); POTASSIUM 4.1 mmol/L (3.5-5.1)
[2018-11-29 19:28] LABS: ALBUMIN 3.4 g/dL (3.4-4.8); TOTAL BILIRUBIN 0.2 mg/dL (0.0-1.0)
[2018-11-29 20:00] VITALS: BP_SYST 116
--- NOTE | 2018-11-29 20:00 | NUR ---
pt.assessed.v/s assessed;values w/in normal limits.pt.stated she presents slight pain.i am to review the emar:med-list. re:pain medication orders.i have apprised the pt.that snacks/beverages are available w/in the shift.pt had requests coffee/pudding/myrtle crackers.i have provided the snacks/coffee.pt.activity status;bedrest.pt.reminded to eleanor for assistance; bedpan.iv access assessed;intact;patent.pt.capable to reposition self.call light/telephone placed w/in the reach of the pt.
--- NOTE | 2018-11-29 20:15 | NUR ---
i had reviewed th emar;med-list i apprised th pt.that neurontin/lyrica ordered.scheduled:pt.had requested ultram;pain, pt.had requested medication;sleep.i am to page the admit md;.
--- NOTE | 2018-11-29 20:30 | NUR ---
the picc line nsg;fabi had telephoned;sdch to confirm the order for picc line placement.i apprised the picc line nsg;the consent was signed per ne toney.the picc line nsg;fabi inquired if the pt.presents renal hx;pt.presents acute renal failure;chronic renal status; absent h/d access lines/av-shunts:nor has the pt.submitted to hemo-dialysis therapy.picc line nsg apprised me that the renal hx of the pt.requires a hydrogen braze furnace operator to consent to the placement of a picc line.;hydrogen braze furnace operator to be paged re;picc line placement.
--- NOTE | 2018-11-29 20:51 | NUR ---
Paged Dr. Taylor, Dr. Perez is confidential secretary s/w [employer]
--- NOTE | 2018-11-29 21:00 | NUR ---
returned the page.i apprised of the pt's requests;ultram;pain. ordered ultram;50mg po tid;schduled.i apprised the pt's requests for medication;sleep. ordered restoril;15mg po;q-hs/p;sleep. i apprised of the picc line placement; had ordered the consent;day shift had not placed the order via the computer.i have attended to the order placement;picc line placement per ;via the computer. Addendum: 12/02/18 at 0403 by Mike Boswell RN i have administered lasix;20mg ivp via extant iv access;#24g;rt.wrist;inner aspect. iv access assessed p/t administration of the lasix;intact;patent.
--- NOTE | 2018-11-29 21:15 | NUR ---
;screen printer;on-call has returned the paged.i have apprised that the pt.is ordered to submit to the placement of;picc line/mid-line;re;the screen printer;pt.presents renal hx;picc kathie kraft had stated per picc line placement policy:the pt.presents hx;renal the screen printer must provide consent for the placement:picc line placement. stated he was not familiar w/the pt.and that will make the decision in the am; post assessment of the pt.:11/30/18.
--- NOTE | 2018-11-29 21:30 | NUR ---
2100p medications administered;per medication reconciliation.i have administered:ultram;50mg po.i have administered:restoril;15mg po.to f/u re;pain medication efficacy per pain mgx protocol.no additional requests posited@this hour.
[2018-11-29] MEDS: ARIPiprazole 5 MG TAB PO SCH (21:36)
[2018-11-29] MEDS: FUROSEMIDE 20 MG/2 ML VIAL IVP SCH (21:36)
[2018-11-29] MEDS: clonazePAM 0.5 MG TABLET PO SCH (21:37)
[2018-11-29] MEDS: BENZTROPINE MESYLATE 1 MG TABLET PO SCH (21:37)
[2018-11-29] MEDS: SERTRALINE HCL 50 MG TABLET PO SCH (21:37)
[2018-11-29] MEDS: TEMAZEPAM 15 MG CAPSULE PO PRN (21:37)
[2018-11-29] MEDS: GABAPENTIN 100 MG CAPSULE PO SCH (21:37)
[2018-11-29] MEDS: traMADol HCL HCL 50 MG TABLET (ULTRAM) PO PRN (21:39)
--- NOTE | 2018-11-29 21:45 | NUR ---
i paged the picc line nsg;fabi.i apprised the nsg that i had conveyed the information;picc line policy;that financial health counselor must provide consent for the picc line/mid-line placement per pt's renal hx.that ;financial health counselor had declined to provide consent for the picc line/mid-line placement and that the decision is deferred to in the am;11/30/18. picc line nsg stated to have the day-shift nsg telephone him via the main telephone line;not his cell-phone# in the am when the financial health counselor has provided the consent to proceed w/the picc line/mid-line placement.
--- NOTE | 2018-11-29 22:00 | NUR ---
pt.assessed.pt.presents quiescent affect;calm,somnolent.general status stable.respiratory status stable. pt.capable to reposition self.call light/telephone placed w/in the reach of the pt.
--- NOTE | 2018-11-30 | NUR ---
pt.assessed.v/s assessed.pt.presents quiescent affect;calm somnolent.no c/o pain,nausea.iv access;intact;patent. general status stable.respiratory status stable;unlabored.pt.capable to reposition self.call light/telephone w/in the reach of the pt.
[2018-11-30 01:29] VITALS: BP_SYST 104
--- NOTE | 2018-11-30 01:30 | NUR ---
[place] of Care Handoff report received from Armand at the bedside. Patient is resting comfortably in bed, eyes closed. Breathing even and unlabored with visible chest rise and fall noted. No SOB, no acute distress, no complaints of pain or discomfort at this time. IV site intact, dressing C/D/I, saline locked. Bed is locked, in the lowest position, 3x side rails up, bed alarm is on. Call light is within reach. Will continue with plan of care.
--- NOTE | 2018-11-30 01:30 | NUR ---
i have re-assigned to the unit;icu.i have conveyed the pt's report/data to tana.
--- NOTE | 2018-11-30 04:00 | NUR ---
Patient resting comfortably in bed, eyes closed. Breathing even and unlabored with visible chest rise and fall noted. NO SOB, no acute distress, no signs of pain or facial grimacing. stable.
[2018-11-30] MEDS: traMADol HCL HCL 50 MG TABLET (ULTRAM) PO PRN ×2 (06:47→18:43)
--- NOTE | 2018-11-30 06:47 | NUR ---
Patient complaining of right upper arm pain. Provided patient with Ultram PRN per MD order, see eMAR for details. Will continue to monitor patient.
--- NOTE | 2018-11-30 06:54 | NUR ---
Nutrition Update Cm Scale 18 noted. Pt admitted for Acute Renal Failure Diet: Renal Standard 2gm Na 3gm K 1gm Phos BMI: 36.4 kg/m2 RD to follow per nutrition care standards.
--- NOTE | 2018-11-30 07:40 | NUR ---
Closing Notes Handoff report given to oncoming dayshift nurse [place] at the bedside. Patient is AAOx3, resting comfortably in bed. No SOB, no acute distress, no complaints of pain at this time. Bed is locked, in the lowest position, 2x side rails up, bed alarm is on. Call light is within reach. Fall and safety precautions maintained. All needs have been met during this shift.
[2018-11-30 08:00] VITALS: BP_SYST 90
--- NOTE | 2018-11-30 08:00 | NUR ---
initial notes rec patient awake alert with periods of foregetfulness. ivl; on the r wrist inatct. seen by dr morel and and orderdd picc line to be inserted. fabi was called by unit betsy silva , awaiting to call back.
[2018-11-30 08:12] LABS: BASOPHILS % (AUTO) 0.6 % (0.0-2.0); EOSINOPHILS # (AUTO) 0.1 K/uL (0.0-0.4); EOSINOPHILS % (AUTO) 2.4 % (0.0-4.0); HEMATOCRIT 34.3 % (36-48); HEMOGLOBIN 11.3 g/dL (12.0-16.0); LYMPHOCYTES # (AUTO) 0.9 K/uL (1.0-5.5); LYMPHOCYTES % (AUTO) 17.5 % (20.5-51.5); MEAN CORPUSCULAR HEMOGLOBIN 30 pg (27-31); MEAN CORPUSCULAR HGB CONC 33 % (32-36); MEAN CORPUSCULAR VOLUME 90 fL (79.0-98.0); MONOCYTES # (AUTO) 0.4 K/uL (0.0-1.0); NEUTROPHILS # (AUTO) 3.9 K/uL (1.8-7.7); NEUTROPHILS % (AUTO) 72.5 % (40.0-70.0); PLATELET COUNT (AUTO) 197 K/uL (130-430); RED BLOOD CELL COUNT(AUTO) 3.83 MIL/uL (4.2-6.2); RED CELL DISTRIBUTION WIDTH 16.3 % (9.0-15.0); WHITE BLOOD COUNT (AUTO) 5.3 K/uL (4.8-10.8)
[2018-11-30 08:21] LABS: ALBUMIN 3.1 g/dL (3.4-4.8); CALCIUM 8.6 mg/dL (8.4-11.0); CREATININE 2.25 mg/dL (0.55-1.30); TOTAL BILIRUBIN 0.3 mg/dL (0.0-1.0)
[2018-11-30] MEDS: FUROSEMIDE 20 MG/2 ML VIAL IVP SCH ×2 (09:00→21:35)
[2018-11-30] MEDS: GABAPENTIN 100 MG CAPSULE PO SCH ×2 (09:05→21:35)
[2018-11-30] MEDS: clonazePAM 0.5 MG TABLET PO SCH ×2 (09:05→21:35)
--- NOTE | 2018-11-30 09:41 | NUR ---
CONSULT REASON FOR CONSULT: CKD STAGE 3 PERSON I SPOKE WITH: MAYA CONSULTING PHYSICIAN: DR. VILLALOBOS RECORD RETRIEVAL SPECIALIST PHONE NUMBER: [phone] ORDERING PHYSICIAN: DR. GRANADOS
--- NOTE | 2018-11-30 09:42 | NUR ---
CONSULTATION PAGED/CALLED Reason for Consultation: [] CKD STAGE 3 Person Who was Notified: [] RAMOS Consulting Physician: [] DR VILLALOBOS (DR RGANADOS MACHINE ADJUSTER LEADER CASE TRIM) Instructor Hairspring Specialty: [] NEPHROLOGY Ordering Physician: [] DR Nilsa GRANADOS
[2018-11-30 10:19] LABS: INR 0.9 (0.8-1.2); PROTHROMBIN TIME 9.2 SECS (9.5-12.5)
[2018-11-30 11:57] VITALS: BP_SYST 112
--- NOTE | 2018-11-30 12:00 | NUR ---
rounds bp was rechecked but bp still low. still waiting maris dunlap was called again. roma supervisor respiratory was asked to call picc line nurse again.
[2018-11-30 16:06] VITALS: BP_SYST 121
--- NOTE | 2018-11-30 18:00 | NUR ---
closing notes awaiting for the picc line nurse to insert a midline or picc line. no sob noted. endorsed that lasix was not given bec of low bp. no osb noted. bed to the lowest position.
[2018-11-30 19:20] VITALS: BP_SYST 112
--- NOTE | 2018-11-30 19:20 | NUR ---
OPENING NOTE RECEIVED ENDORSEMENT REPORT FROM DAY NURSE IMELDA AT BEDSIDE. PT RESTING IN BED, AOX4, IN NO ACUTE DISTRESS. PT DENIES PAIN OR DISCOMFORT. BREATHING IS UNLABORED TO ROOM AIR. IV CLEAN, DRY AND INTACT. BANERJEE CLEAN AND INTACT, BANERJEE EMPTYING TO GRAVITY. EDUCATED PT ON HOW TO USE CALL LIGHT AND ROOM PHONE. PT VERBALIZED UNDERSTANDING. SAFETY PRECAUTIONS ARE IN PLACE: BED IS LOCKED IN LOWEST POSITION, CALL LIGHT IS WITH PT, SIDE RAILS UP X2, BED ALARM ON. WILL CONTINUE POC AND MONITOR PT.
--- NOTE | 2018-11-30 20:00 | NUR ---
RN ROUNDS PT RESTING IN BED, IN NO ACUTE DISTRESS. PT DENIES PAIN OR DISCOMFORT. BREATHING IS UNLABORED TO ROOM AIR. VITAL SIGNS WNL. SAFETY PRECAUTIONS ARE IN PLACE. WILL CONTINUE POC AND MONITOR PT.
--- NOTE | 2018-11-30 20:30 | NUR ---
PICC LINE NURSE IBETH CALLED TO CONFIRM PICC PLACEMENT CONSENT SIGNED BY PATIENT AND MD. ETA 5 MIN PER NURSE
--- NOTE | 2018-11-30 20:45 | NUR ---
PICC LINE NURSE IBETH AT BEDSIDE
--- NOTE | 2018-11-30 21:21 | NUR ---
NURSE CRISTINA INSERTED MIDLINE ON KRISTA, DOUBLE LUMEN, ARM CIRCUMFERENCE 36CM, CATH 13 CM
[2018-11-30] MEDS: TEMAZEPAM 15 MG CAPSULE PO PRN (21:35)
[2018-11-30] MEDS: ARIPiprazole 5 MG TAB PO SCH (21:35)
[2018-11-30] MEDS: BENZTROPINE MESYLATE 1 MG TABLET PO SCH (21:35)
[2018-11-30] MEDS: SERTRALINE HCL 50 MG TABLET PO SCH (21:36)
--- NOTE | 2018-11-30 21:45 | NUR ---
RN ROUNDS PT RESTING IN BED, IN NO ACUTE DISTRESS. PT DENIES PAIN OR DISCOMFORT. BREATHING IS UNLABORED TO ROOM AIR. VITAL SIGNS WNL. SCHEDULED MEDICATIONS ADMINISTERED ORDERED. PT TOLERATED WELL. SAFETY PRECAUTIONS ARE IN PLACE. WILL CONTINUE POC AND MONITOR PT.
--- NOTE | 2018-11-30 22:50 | NUR ---
RN ROUNDS PT RESTING IN BED, IN NO ACUTE DISTRESS. PT DENIES PAIN OR DISCOMFORT. BREATHING IS UNLABORED TO ROOM AIR. NO NEEDS AT THIS TIME. SAFETY PRECAUTIONS ARE IN PLACE. WILL CONTINUE POC AND MONITOR PT.
--- NOTE | 2018-12-01 00:40 | NUR ---
RN ROUNDS PT RESTING IN BED, IN NO ACUTE DISTRESS. NO S/S OF PAIN NOTED. BREATHING IS UNLABORED TO ROOM AIR. SAFETY PRECAUTIONS ARE IN PLACE. WILL CONTINUE POC AND MONITOR PT.
[2018-12-01 00:57] VITALS: BP_SYST 124
--- NOTE | 2018-12-01 04:55 | NUR ---
RN ROUNDS PT RESTING IN BED WITH EYES CLOSED. PT IN NO ACUTE DISTRESS. NO S/S OF PAIN NOTED. NO NEEDS AT THIS TIME. SAFETY PRECAUTIONS ARE IN PLACE. WILL CONTINUE POC AND MONITOR PT.
--- NOTE | 2018-12-01 07:01 | NUR ---
CLOSING NOTE PT RESTING IN BED, AAOX4, IN NO ACUTE DISTRESS. PT DENIES PAIN OR DISCOMFORT. BREATHING IS UNLABORED TO ROOM AIR. ALL SCHEDULED MEDICATIONS ADMINISTERED ORDERED. ALL NEEDS MET THROUGHOUT SHIFT. SAFETY PRECAUTIONS ARE IN PLACE. WILL CONTINUE TO MONITOR UNTIL PT CARE IS ENDORSED TO DAY SHIFT RN
[2018-12-01 08:33] VITALS: BP_SYST 118
[2018-12-01] MEDS: clonazePAM 0.5 MG TABLET PO SCH ×2 (09:12→20:54)
[2018-12-01] MEDS: GABAPENTIN 100 MG CAPSULE PO SCH ×2 (09:12→20:54)
[2018-12-01] MEDS: FUROSEMIDE 20 MG/2 ML VIAL IVP SCH ×2 (09:13→20:54)
[2018-12-01] MEDS: traMADol HCL HCL 50 MG TABLET (ULTRAM) PO PRN ×3 (09:14→20:55)
--- NOTE | 2018-12-01 10:00 | NUR ---
rounds due meds given as ordered. no sob noted. call light within reached.
--- NOTE | 2018-12-01 12:00 | NUR ---
rounds denies pain , no acute distress noted.
[2018-12-01 12:34] VITALS: BP_SYST 119
--- NOTE | 2018-12-01 14:36 | NUR ---
rounds sleeps at intervals . no sob noted.
--- NOTE | 2018-12-01 16:00 | NUR ---
CASE MANAGEMENT: RECEIVED A CALL FROM KACEY KHAN (REGIONAL AVIATION TECHNICIAN AIRCRAFT ) @ . KACEY CONFIRMED THAT [facility] IS THE SUPPORTIVE LIVING SKILLS PROGRAM THAT IS FUNDED BY THE [facility]. KACEY ROSA IS THE MAIN CAREGIVER THAT TAKES PATIENT TO DOCTORS APPOINTMENT AND HELP WITH ADLS AT HOME. PATIENT HAS ALSO CAREGIVER PATRICIA ALCOCER THAT COMES IN 6X WEEK AT 4HOURS PER DAY M-SAT THRU [facility]. PER KACEY, LONG PATIENT IS ALERT AND ORIENTED. PATIENT IS NOT CONSERVED. PATIENT HAS TWO DAUGHTERS BUT ACCORDING TO ABILIO THE CAREGIVER THEY ARE NOT ABLE TO MAKE DECISIONS ON BEHALF OF PATIENT. PATIENT HAS BEEN ON HOME HEALTH SERVICES BEFORE BUT KACEY DOES NOT HAVE THE NAME OF THE AGENCY. NEED TO ASK RAMOS LEE REGARDING HOME HEALTH AGENCY BEFORE. PATIENT PREFERS TO GO HOME UPON DISCHARGE AND WAS NOT OPEN TO SNF. DUE TO PATIENT WAS VERY CONCERN OF HER EX-, WHO CURRENTLY LIVES WITH HER, STATED THAT HER EX- WILL GO OUT TO THE STREETS. IF SHE IS NOT HOME FOR A LONG TIME. REGIONAL AVIATION TECHNICIAN AIRCRAFT WOULD WANT TO BE CONTACTED UPON PATIENT DISCHARGE.
[2018-12-01 16:50] VITALS: BP_SYST 121
--- NOTE | 2018-12-01 19:18 | NUR ---
Opening Note Received bedside report with patient in bed sitting. AAOx3 and able to verbalize her needs. No respiratory distress. Left Upper arm Midline, patent with no s/s of infiltration. Blood return and flushed with 10ml NS. Haider in place draining by gravity yellow and clear. Oriented the patient to the room and use of the call light. Call light placed within reach. Belongings within reach. Will monitor patient for change in condition on rounds.
[2018-12-01 20:00] VITALS: BP_SYST 128
[2018-12-01] MEDS: ARIPiprazole 5 MG TAB PO SCH (20:55)
[2018-12-01] MEDS: SERTRALINE HCL 50 MG TABLET PO SCH (20:55)
[2018-12-01] MEDS: BENZTROPINE MESYLATE 1 MG TABLET PO SCH (20:55)
--- NOTE | 2018-12-01 22:34 | NUR ---
Patient sitting up in 45 deg in bed asleep with audible breath sounds heard. No facial grimacing of pain. no respiratory distress noted. will continue to monitor on rounds.
--- NOTE | 2018-12-02 00:20 | NUR ---
Patient in bed with eyes closed and audible breath sounds. No pain or respiratory distress noted at this time. will cont to monitor on rounds.
[2018-12-02 00:44] VITALS: BP_SYST 112
--- NOTE | 2018-12-02 02:04 | NUR ---
Patient in bed resting. Does not need anything at this time. States no pain or respiratory distress. Will cont to monitor on rounds.
--- NOTE | 2018-12-02 03:35 | NUR ---
Patient refusing Blood Draw at this time. Patient was informed and educated but still refused.
--- NOTE | 2018-12-02 04:42 | NUR ---
No change in condition.
[2018-12-02] MEDS: traMADol HCL HCL 50 MG TABLET (ULTRAM) PO PRN ×3 (05:09→17:25)
--- NOTE | 2018-12-02 06:28 | NUR ---
Closing Notes No change from initial assessment. Call light within reach and all needs have been met. Safety precautions in place and will endorse care to oncoming nurse.
[2018-12-02 08:01] VITALS: BP_SYST 123; BP_SYST 126
--- NOTE | 2018-12-02 08:10 | NUR ---
OPENING NOTE patient resting in bed A&O x4, patient denies any acute distress or pain, breathing is even and unlabored on room air, educated patient on plan of care and call light system, midline dressing clean dry and intact, awad catheter draining well by gravity, will continue to monitor, safety precautions in place, call light within reach, bed alarm on.
[2018-12-02] MEDS: clonazePAM 0.5 MG TABLET PO SCH ×2 (08:32→20:33)
[2018-12-02] MEDS: GABAPENTIN 100 MG CAPSULE PO SCH ×2 (08:32→20:33)
[2018-12-02] MEDS: FUROSEMIDE 20 MG/2 ML VIAL IVP SCH ×2 (08:32→20:33)
--- NOTE | 2018-12-02 10:45 | NUR ---
NOTES PATIENT WALKING AROUND FLOOR WITH PHYSICAL THERAPY USING WALKER, PATIENT TOLERATING WELL, BREATHING IS EVEN AND UNLABORED ON ROOM AIR, NO PAIN OR DISTRESS AT THIS TIME, WILL CONTINUE TO MONITOR, SAFETY PRECAUTIONS IN PLACE.
[2018-12-02 12:14] VITALS: BP_SYST 102
--- NOTE | 2018-12-02 12:51 | NUR ---
NOTES patient is eating lunch in bed, patient denies any acute distress, pain is controlled at this time, breathing is even and unlabored on room air, will continue to monitor, safety precautions in place, call light within reach.
--- NOTE | 2018-12-02 14:43 | NUR ---
NOTES patient is resting in bed A&O x4, patient denies any acute distress, pain is controlled at this time, breathing is even and unlabored on room air, will continue to monitor, safety precautions in place, call light within reach.
[2018-12-02 14:52] LABS: BASOPHILS % (AUTO) 0.4 % (0.0-2.0); EOSINOPHILS # (AUTO) 0.1 K/uL (0.0-0.4); HEMATOCRIT 36.3 % (36-48); HEMOGLOBIN 11.9 g/dL (12.0-16.0); LYMPHOCYTES # (AUTO) 0.8 K/uL (1.0-5.5); LYMPHOCYTES % (AUTO) 12.5 % (20.5-51.5); MEAN CORPUSCULAR HEMOGLOBIN 29 pg (27-31); MEAN CORPUSCULAR HGB CONC 33 % (32-36); MEAN CORPUSCULAR VOLUME 89 fL (79.0-98.0); MONOCYTES # (AUTO) 0.5 K/uL (0.0-1.0); MONOCYTES % (AUTO) 7.2 % (1.7-9.3); NEUTROPHILS % (AUTO) 77.9 % (40.0-70.0); PLATELET COUNT (AUTO) 239 K/uL (130-430); RED BLOOD CELL COUNT(AUTO) 4.08 MIL/uL (4.2-6.2); RED CELL DISTRIBUTION WIDTH 16.3 % (9.0-15.0); WHITE BLOOD COUNT (AUTO) 6.5 K/uL (4.8-10.8)
[2018-12-02 15:04] LABS: CREATININE 2.18 mg/dL (0.55-1.30); POTASSIUM 3.7 mmol/L (3.5-5.1)
[2018-12-02 16:13] VITALS: BP_SYST 121
--- NOTE | 2018-12-02 16:50 | NUR ---
NOTES patient is resting in bed A&O x4, dressings on bilateral arms changed, patient is having pain in her shoulder, educated patient on pain management and medication schedule, patient verbalized understanding, will continue to monitor, safety precautions in place, call light within reach.
--- NOTE | 2018-12-02 18:26 | NUR ---
CLOSING NOTE patient is resting in bed eating dinner, pain is controlled at this time, breathing is even and unlabored on room air, patient denies any acute distress, awad catheter draining well by gravity, all needs were met throughout shift, will endorse report to oncoming nurse, safety precautions in place, call light within reach.
--- NOTE | 2018-12-02 19:15 | NUR ---
Initial Note Received patient awake, alert and oriented with forgetfulness. No SOB noted. Denies any pain or n/v at this time. VS stable. Patient just finished dinner. Midline noted on KRITSA. F/C intact and draining well with yellow colored urine. Dressing on BUE CDI. Mild edema noted on BLE-elevated on pillows. Care and monitoring will be provided per protocol. Call light within reach. Bed alarm on and at lowest position at all times. Needs attended. Kept warm and comfortable.
[2018-12-02 20:00] VITALS: BP_SYST 134
--- NOTE | 2018-12-02 20:30 | NUR ---
RN Note Due meds given, tolerated well. No other complaints. Assist in repositioning. Elevated BLE on pillows. Kept warm and comfortable.
[2018-12-02] MEDS: BENZTROPINE MESYLATE 1 MG TABLET PO SCH (20:33)
[2018-12-02] MEDS: ARIPiprazole 5 MG TAB PO SCH (20:33)
[2018-12-02] MEDS: SERTRALINE HCL 50 MG TABLET PO SCH (20:38)
--- NOTE | 2018-12-02 22:30 | NUR ---
RN Note Patient sleeping at this time. No SOB or grimacing noted.
--- NOTE | 2018-12-03 01:00 | NUR ---
RN Note Asleep, moves occasionally. Repositions herself. No distress noted.
[2018-12-03 01:36] VITALS: BP_SYST 122
--- NOTE | 2018-12-03 03:30 | NUR ---
RN Note Patient sleeping comfortably in bed. Self reposition. No signs of acute distress.
--- NOTE | 2018-12-03 06:02 | NUR ---
End Note Afebrile. VS stable. No complain of pain, SOB or n/v throughout the night. Repositions self. Adequate urine output from F/C. Dressings on BUE CDI. PT was ordered for the patient. Encouraged to eat more and offered some snacks. Midline catheter patent and intact. Care and monitoring provided per protocol. Call light within reach. Bed alarm on and at lowest position at all times. Needs attended. Kept warm and comfortable.
[2018-12-03 08:03] VITALS: BP_SYST 95
--- NOTE | 2018-12-03 08:10 | NUR ---
OPENING NOTE patient resting in bed A&O x4, patient denies any acute distress or pain at this time, breathing is even and unlabored on room air, awad catheter draining well by gravity, educated patient on plan of care and call light system, will continue to monitor, safety precautions in place, call light within reach.
[2018-12-03] MEDS: clonazePAM 0.5 MG TABLET PO SCH ×2 (08:31→21:13)
[2018-12-03] MEDS: GABAPENTIN 100 MG CAPSULE PO SCH ×2 (08:31→21:13)
[2018-12-03] MEDS: FUROSEMIDE 20 MG/2 ML VIAL IVP SCH ×3 (09:00→21:12)
[2018-12-03] MEDS: traMADol HCL HCL 50 MG TABLET (ULTRAM) PO PRN ×3 (09:05→21:14)
--- NOTE | 2018-12-03 10:35 | NUR ---
NOTES patient is resting in bed watching tv, patient denies any acute distress or pain at this time, breathing is even and unlabored on room air, awad catheter draining well by gravity, will continue to monitor, safety precautions in place, call light within reach.
--- NOTE | 2018-12-03 12:13 | NUR ---
NOTES patient eating lunch in bed a this time, patient denies any acute distress or pain, breathing is even and unlabored on room air, awad catheter draining well by gravity, will continue to monitor, safety precautions in place, call light within reach.
[2018-12-03 13:17] VITALS: BP_SYST 120
--- NOTE | 2018-12-03 14:50 | NUR ---
NOTES patient is resting in bed, daughters are at bedside, patient denies any acute distress, pain is controlled at this time, breathing is even and unlabored on room air, awad catheter draining well by gravity, will continue to monitor, safety precautions in place, call light within reach.
--- NOTE | 2018-12-03 16:47 | NUR ---
MD ROUNDS Dr. Nicole assessed patient in bed, MD ordered to remove awad, will remove awad.
--- NOTE | 2018-12-03 16:56 | NUR ---
DC BANERJEE BANERJEE REMOVED AT THIS TIME, WILL MONITOR FOR FIRST URINATION.
[2018-12-03 17:03] VITALS: BP_SYST 127
--- NOTE | 2018-12-03 18:27 | NUR ---
CLOSING NOTE patient is resting in bed eating dinner, pain is controlled at this time, breathing is even and unlabored on room air, patient denies any acute distress, still waiting for first void, all needs were met throughout shift, will endorse report to oncoming nurse, safety precautions in place, call light within reach.
[2018-12-03 19:00] VITALS: BP_SYST 130
--- NOTE | 2018-12-03 19:15 | NUR ---
change of shift.pt.presents quiescent affect;calm,viewing tv programming.pt.presents mid-line;lt.antecubital fossa.intact; iv lock.general status stable.respiratory status stale@room air.call light/telephone w/in the reach of the pt.
[2018-12-03 20:00] VITALS: BP_SYST 130
--- NOTE | 2018-12-03 20:00 | NUR ---
pt.assessed.v/s assessed;values w/in normal limits.i have apprised the pt.that snacks/beverages are available w/in the shift. no requests posited @this hour.i have removed the dinner tray.pt.had inquired when the pain medication;ultram is due.i have stated w/the 2100p medications hour.pt.assessed for cleanliness.pt.repositioned.general status stable.respiratory statu stable @room air.call light/telephone placed w/in the reach of the pt. Addendum: 12/04/18 at 0350 by Mike Boswell RN i have placed the sign;nsg/pt.alert;mid-line;location;lt.antecubital;fossa.
--- NOTE | 2018-12-03 21:00 | NUR ---
2100p medications administered;ultram;pain.t fu re;pain medication efficacy per pain mgx protocol.no requests posited @this hour.
[2018-12-03] MEDS: ARIPiprazole 5 MG TAB PO SCH (21:12)
[2018-12-03] MEDS: BENZTROPINE MESYLATE 1 MG TABLET PO SCH (21:12)
[2018-12-03] MEDS: SERTRALINE HCL 50 MG TABLET PO SCH (21:13)
[2018-12-03] MEDS: TEMAZEPAM 15 MG CAPSULE PO PRN (21:13)
--- NOTE | 2018-12-03 22:00 | NUR ---
pt.assessed.pt.presents quiescent affect;calm,somnolent.pt.assessed for cleanliness.pt.repositioned.genral status stable. respiratory status stable@room air.call light/telephone placed w/in the reach of the pt.
[2018-12-04] VITALS: BP_SYST 125
--- NOTE | 2018-12-04 | NUR ---
pt.assessed.v/s assessed;values w/in normal limits.no c/o pain,nausea.pt.assessed for cleanliness.pt.repositioned. mid line assessed;intact.general status stable.respiratory status stable.call light/telephone w/in placed w/in the reach of the pt.
--- NOTE | 2018-12-04 02:00 | NUR ---
pt.assessed.pt.presents quiescent affect;calm,somnolent.pt.assessed for cleanliness.pt.repositioned.general status stable.respiratory status stable.call light/telephone placed w/in the reach of the pt.
--- NOTE | 2018-12-04 04:00 | NUR ---
pt.assessed.pt.presents quiescent affect;calm somnolent.pt assessed for cleanliness. pt.repositioned,general status stable.respiratory status stable.call light/telephone placed w/in reach of the pt.
--- NOTE | 2018-12-04 06:30 | NUR ---
pt.assessed.pt.assessed for cleanliness.pt.repositioned.i have attended to the dsg changes.no c/o pain,nausea, no requests posted @this hour.call light/telephone placed w/in the reach of the pt.
[2018-12-04 07:43] LABS: ALBUMIN 3.4 g/dL (3.4-4.8); CALCIUM 9.1 mg/dL (8.4-11.0); CREATININE 2.34 mg/dL (0.55-1.30); POTASSIUM 3.5 mmol/L (3.5-5.1); TOTAL BILIRUBIN 0.3 mg/dL (0.0-1.0)
[2018-12-04 07:44] LABS: BASOPHILS % (AUTO) 0.8 % (0.0-2.0); EOSINOPHILS # (AUTO) 0.2 K/uL (0.0-0.4); EOSINOPHILS % (AUTO) 3.2 % (0.0-4.0); HEMOGLOBIN 12.4 g/dL (12.0-16.0); LYMPHOCYTES # (AUTO) 0.9 K/uL (1.0-5.5); LYMPHOCYTES % (AUTO) 14.8 % (20.5-51.5); MEAN CORPUSCULAR HEMOGLOBIN 30 pg (27-31); MEAN CORPUSCULAR HGB CONC 34 % (32-36); MEAN CORPUSCULAR VOLUME 89 fL (79.0-98.0); MONOCYTES # (AUTO) 0.4 K/uL (0.0-1.0); MONOCYTES % (AUTO) 6.2 % (1.7-9.3); NEUTROPHILS # (AUTO) 4.4 K/uL (1.8-7.7); PLATELET COUNT (AUTO) 246 K/uL (130-430); RED BLOOD CELL COUNT(AUTO) 4.18 MIL/uL (4.2-6.2); RED CELL DISTRIBUTION WIDTH 16.1 % (9.0-15.0); WHITE BLOOD COUNT (AUTO) 5.9 K/uL (4.8-10.8)
[2018-12-04 07:55] VITALS: BP_SYST 114
--- NOTE | 2018-12-04 07:55 | NUR ---
INITIAL ROUNDS Received pt AAOx4, no s/s resp distress, no c/o pain or discomfort. Plan of care for the day reviewed with pt-pt verbalized her understanding. Pain management, disease process, skin and safety discussed-teach back done. Call light within reach.
[2018-12-04] MEDS: clonazePAM 0.5 MG TABLET PO SCH ×2 (10:05→21:57)
[2018-12-04] MEDS: GABAPENTIN 100 MG CAPSULE PO SCH ×2 (10:05→21:56)
[2018-12-04] MEDS: FUROSEMIDE 20 MG/2 ML VIAL IVP SCH (10:06)
[2018-12-04] MEDS: traMADol HCL HCL 50 MG TABLET (ULTRAM) PO PRN ×3 (10:12→23:37)
--- NOTE | 2018-12-04 10:15 | NUR ---
ROUNDS/CLEANED Pt incontinent of urine, pt cleaned up, fresh linens and chux placed, clean gown put on pt. Pt now sitting up in bed finishing her breakfast. C/o right shoulder pain-Ultram given as ordered. Call light within reach.
--- NOTE | 2018-12-04 13:50 | NUR ---
Nutrition Assessment (short note d/t lack of time) A- RD reviewed pt's current EMR including diet Hx, physician notes, nursing notes, pertinent labs/meds/procedures, care trends and care activity. Primary Dx: ARF. Current Diet Order: Renal Standard 2gm Na 3gm K, 1gm Phos x 5 days. Pt seen resting in bed, covered in blankets at time of RD visit. Pt reported of good appetite, and that she usually eats food from restaurants. She did not provide much nutrition information. Per EMR, PO intake 85% x 3 days. Pt denied any abd discomfort, chewing or swallowing problem, food allergy or any supplement use. Pt declined education when RD offered. Ht: 5'5 Wt: 228 lb, 104 kg %IBW: 182 IBW: 125 lb, 57 kg Adj IBW: 151 lb, 69 kg ESTIMATED NUTRITIONAL REQUIREMENTS CALORIES/DAY: 5692-0807 kcal/day (25-30 kcal/kg Adj IBW for chronic illness) PROTEIN/DAY: 55-83 gm/day (0.8-1.2 gm/kg Adj IBW for Renal Dz predialysis and maintenance) FLUID/DAY: per MD (Renal Dz) D: Obese Class II r/t lifestyle factors AEB frequent consumption of high calorie food and beverages from restaurants and BMI 38 kg/m2. I: Recommend: Continuing Renal standard diet per MD orders. M: Monitor appetite and PO intake w/ goal of pt meeting at least 75% of estimated nutritional needs, labs trending WNL, normal GI function, skin integrity/wt maintenance. E: RD to F/U MR within 3-5 days [facility], YORDAN
--- NOTE | 2018-12-04 14:13 | NUR ---
ROUNDS Pt resting quietly in bed with no s/s resp distress, no c/o pain or discomfort. Needs met, call light within reach.
--- NOTE | 2018-12-04 15:49 | NUR ---
ROUNDS Pt urinated large amount of yellow urine, pt cleaned up and fresh chux and linens placed. Pt repositioned for comfort and skin care. Call light within reach.
[2018-12-04 16:15] VITALS: BP_SYST 118
--- NOTE | 2018-12-04 17:15 | NUR ---
SKIN CARE Dressing to left hand dislodged by pt, new dressing placed. Area cleansed with normal saline, hydrogel placed to wound bed, oil emulsion dressing put in place, covered with foam dressing. Wound bed 100% pink, no odor, minimal drainage, no necrotic tissue noted.
--- NOTE | 2018-12-04 18:34 | NUR ---
CLOSING NOTE Pt resting quietly in bed with no s/s resp distress, no c/o pain or discomfort. Needs met, all precautions remain in place, call light within reach.
--- NOTE | 2018-12-04 19:10 | NUR ---
Bedside report obtained from day shift nurse. Pt is fully awake and alert. No c/o pain or discomfort and no acute distress noted. Midline in KRISTA noted with the dressing dry and intact. Fall and safety precautions are in place. Call light is with pt and bed alarm is on. Pt was instructed to call for assistance as needed and pt verbalized understanding.
[2018-12-04 20:00] VITALS: BP_SYST 104
--- NOTE | 2018-12-04 21:30 | NUR ---
Pt was incontinent of large amount of clear yellowish urine. Incontinent care given and partial linen change done.
[2018-12-04] MEDS: SERTRALINE HCL 50 MG TABLET PO SCH (21:56)
[2018-12-04] MEDS: BENZTROPINE MESYLATE 1 MG TABLET PO SCH (21:56)
[2018-12-04] MEDS: ARIPiprazole 5 MG TAB PO SCH (21:57)
--- NOTE | 2018-12-04 23:37 | NUR ---
Pt c/o 10/09 right shoulder pain. Tramadol 50mg was given po per pt's request.
[2018-12-05] VITALS: BP_SYST 114
--- NOTE | 2018-12-05 01:30 | NUR ---
Pt is sleeping quietly in bed. Call light is with pt and bed alarm is on.
--- NOTE | 2018-12-05 03:30 | NUR ---
Pt is sleeping comfortably in bed. Fall and safety precautions are in place.
--- NOTE | 2018-12-05 05:00 | NUR ---
Pt is resting quietly in bed. No c/o pain or discomfort. Call light is with pt and bed alarm is on.
--- NOTE | 2018-12-05 06:30 | NUR ---
Pt is awake and resting quietly in bed. No acute distress noted at this time. Fall and safety precautions are in place. Will endorse to day shift nurse.
[2018-12-05 08:25] LABS: CALCIUM 9.1 mg/dL (8.4-11.0); CREATININE 2.26 mg/dL (0.55-1.30); POTASSIUM 3.4 mmol/L (3.5-5.1)
[2018-12-05] MEDS ORDERED: FUROSEMIDE 20 MG/2 ML VIAL IVP SCH (09:00)
[2018-12-05] MEDS: GABAPENTIN 100 MG CAPSULE PO SCH (10:24)
[2018-12-05] MEDS: traMADol HCL HCL 50 MG TABLET (ULTRAM) PO PRN (10:25)
[2018-12-05] MEDS: clonazePAM 0.5 MG TABLET PO SCH (10:26)
--- NOTE | 2018-12-05 10:44 | NUR ---
Discharge Planning: DCP faxed referral to Amandeep Aguilar (f [phone] p [phone]) DCP to follow up. Addendum: 12/05/18 at 1104 by Katherine Rivera DP [place] (f [phone] p [phone]) accepted Rm 32B per Laurie. Addendum: 12/05/18 at 1529 by Katherine Rivera DP [place] (f [phone] p [phone]) Rm 32B, [place] ([phone]) 5:00pm P/U Packet taken to nurse station.
[2018-12-05 12:50] VITALS: BP_SYST 111
--- NOTE | 2018-12-05 14:34 | NUR ---
DC PLANNING: CM SPOKE WITH PATIENT AND PATIENT'S CAREGIVER (PATRICIA) AT BEDSIDE AND DISCUSSED DC PLANNING TO SNF. PATIENT HAD AGREED TO SNF AND AGREED TO RECOMMENDED SNF BY DR. ESPINOZA. WHICH IS [facility] SN[facility]. CM ATTEMPTED TO CONTACT PATIENT'S SLS WORKER/ [facility] CAREGIVER (RAMOS) TO INFORM OF THE DC PLANNING. HOWEVER, WAS UNAVAILABLE. CM LEFT A VOICE MESSAGE. CM ALSO ATTEMPTED TO CONTACT PATIENT'S REGIONAL DELIVERY CLERK ( KACEY KHAN ) @ TO INFORM OF THE DC PLAN. HOWEVER, WAS UNAVAILABLE. CM LEFT A VOICE MESSAGE. CM TO FOLLOW UP NEEDED.
[2018-12-05 16:28] VITALS: BP_SYST 116
--- NOTE | 2018-12-05 17:04 | NUR ---
Informed: Spoke to Norma Wray (caregiver) and informed her that patient will be transferred to [place] at 5pm today and she will inform Jeimy Marquez from [facility].
[2018-12-05 17:14] VITALS: BP_SYST 127
--- NOTE | 2018-12-05 18:07 | NUR ---
AT THE BEGINNING OF THE SHIFT PT. IN BED RESTING QUIETLY,ROOM AIR,CALL LIGHT IN REACH,SR UP X 3, BED ALARM ON,WILL MONITOR.
--- NOTE | 2018-12-05 18:32 | NUR ---
AT 1750 PT.ALERT,ORIENTED,CALM,DISCHARGED TO SNF VIA STRETCHER/AMBULANCE, REPORT GIVEN TO THE RECEIVING FACILITY NURSE MAGGIE
--- NOTE | 2018-12-05 18:43 | NUR ---
LEFT UPPER ARM MIDLINE D/C UPON D/C NO BLEEDING,COVER WITH 4X4/TAPE
== END 2018-12-05 17:48 | DRG 682 ==
LOC: SMU 17:00 → STU 17:09 → SMU 12-01 10:50
PROVIDERS: ADMIT Family Medicine; ATTEND Family Medicine
PROC: 05HY33Z Insertion of Infusion Device into Upper Vein, Percutaneous Approach (ICD-10-PCS; principal; 2018-11-30)
PROC: B54NZZA Ultrasonography of Left Upper Extremity Veins, Guidance (ICD-10-PCS; 2018-11-30)
DX: I12.9 Hypertensive chronic kidney disease with stage 1 through stage 4 chronic kidney disease, or unspecified chronic kidney disease (principal); G93.41 Metabolic encephalopathy; N17.9 Acute kidney failure, unspecified; N18.4 Chronic kidney disease, stage 4 (severe); M19.90 Unspecified osteoarthritis, unspecified site; E66.3 Overweight; F17.200 Nicotine dependence, unspecified, uncomplicated; F32.9 Major depressive disorder, single episode, unspecified; R29.6 Repeated falls; Z96.642 Presence of left artificial hip joint; F41.9 Anxiety disorder, unspecified; Z88.5 Allergy status to narcotic agent; Z88.9 Allergy status to unspecified drugs, medicaments and biological substances; Z68.38 Body mass index [BMI] 38.0-38.9, adult
CPT/HCPCS: 36415; 80048; 80053; 83735-TC; 85025; 85610-TC; 85730-TC; C1751; G0378; J1940

== ENCOUNTER 2019-04-04 16:38 | Inpatient (IN) | payer OTHER, MEDICAID ==
[~2019-04-04] VITALS: Ht 165.1 cm; Wt 109.8 kg
[~2019-04-04 16:38] MED LIST changes: +ARIP20TA4 PO; +BENZ2AMP PO; -CLIN300C11 PO; +FESO4TAB PO; -HYDR-1189 PO; -SERT-131 PO
[2019-04-04 18:13] VITALS: BP_SYST 149
[2019-04-04] MEDS ORDERED: ESCI10TA PO (18:13)
[2019-04-04] MEDS ORDERED: FURO-150 PO (18:13)
[2019-04-04] MEDS ORDERED: CALC-823 PO (18:13)
[2019-04-04] MEDS ORDERED: MELO15TA13 PO (18:13)
[2019-04-04] MEDS ORDERED: BENZ2TAB65 PO (18:13)
[2019-04-04] MEDS ORDERED: CHOL500037 PO (18:13)
[2019-04-04] MEDS ORDERED: FUROSEMIDE 40 MG/4 ML VIAL IVP ONE (18:53)
[2019-04-04 19:10] LABS: BASOPHILS % (AUTO) 0.7 % (0.0-2.0); EOSINOPHILS # (AUTO) 0.1 K/uL (0.0-0.4); EOSINOPHILS % (AUTO) 2.4 % (0.0-4.0); HEMATOCRIT 39.7 % (36-48); LYMPHOCYTES # (AUTO) 0.9 K/uL (1.0-5.5); LYMPHOCYTES % (AUTO) 14.8 % (20.5-51.5); MEAN CORPUSCULAR HEMOGLOBIN 29 pg (27-31); MEAN CORPUSCULAR HGB CONC 33 % (32-36); MEAN CORPUSCULAR VOLUME 88 fL (79.0-98.0); MONOCYTES # (AUTO) 0.8 K/uL (0.0-1.0); MONOCYTES % (AUTO) 12.7 % (1.7-9.3); NEUTROPHILS # (AUTO) 4.4 K/uL (1.8-7.7); NEUTROPHILS % (AUTO) 69.4 % (40.0-70.0); PLATELET COUNT (AUTO) 256 K/uL (130-430); RED CELL DISTRIBUTION WIDTH 15.9 % (9.0-15.0); WHITE BLOOD COUNT (AUTO) 6.3 K/uL (4.8-10.8)
[2019-04-04 19:24] LABS: ALBUMIN 3.7 g/dL (3.4-4.8); CALCIUM 10.1 mg/dL (8.4-11.0); CREATININE 2.48 mg/dL (0.55-1.30); POTASSIUM 4.3 mmol/L (3.5-5.1); TOTAL BILIRUBIN 0.2 mg/dL (0.0-1.0)
[2019-04-04] MEDS: NORMAL SALINE 5 ML DISP.SYRIN IVF SCH ×2 (19:43→21:59)
[2019-04-04 21:55] VITALS: BP_SYST 130
[2019-04-04] MEDS: GABAPENTIN 100 MG CAPSULE PO SCH (21:59)
[2019-04-04] MEDS: CALCIUM CARBONATE/VITAMIN D3 1 TAB TABLET PO SCH (21:59)
[2019-04-04] MEDS: clonazePAM 0.5 MG TABLET PO SCH (21:59)
[2019-04-04] MEDS: ARIPiprazole 5 MG TAB PO SCH (21:59)
[2019-04-04] MEDS: BENZTROPINE MESYLATE 1 MG TABLET PO SCH (21:59)
[2019-04-05 00:15] LABS: BILIRUBIN,URINE NEGATIVE (NEGATIVE); CLARITY/URINE CLEAR (CLEAR); COLOR,URINE YELLOW (YELLOW); GLUCOSE,URINE NEGATIVE (NEGATIVE); KETONES,URINE NEGATIVE (NEGATIVE); LEUKOCYTE ESTERASE ,URINE 3+ (NEGATIVE); NITRITE, URINE NEGATIVE (NEGATIVE); PROTEIN URINE NEGATIVE (NEGATIVE); UROBILINOGEN,URINE 0.2 (0.2-1.0)
[2019-04-05 00:17] LABS: BLOOD, URINE TRACE (NEGATIVE)
[2019-04-05] MEDS ORDERED: PIPERACILLIN/TAZOBACTAM 2.25 GM VIAL IV ONE (00:36)
[2019-04-05 00:44] LABS: BACTERIA,URINE MODERATE /HPF (None Seen)
[2019-04-05] MEDS: PIPERACILLIN/TAZO 2.25G/DEX-IS 50 ML IV SCH (03:39)
[2019-04-06] MEDS ORDERED: PIPERACILLIN/TAZOBACTAM 2.25 GM VIAL IV ONE (00:42)
[2019-04-06] MEDS: CITALOPRAM HYDROBROMIDE 20 MG TABLET PO SCH ×2 (09:00→22:53)
[2019-04-06] MEDS ORDERED: traMADol HCL HCL 50 MG TABLET (ULTRAM) ONE ×3 (12:08→18:16)
[2019-04-06] MEDS: MELOXICAM 7.5 MG TABLET PO SCH (18:00)
[2019-04-06] MEDS: BENZTROPINE MESYLATE 1 MG TABLET PO SCH (22:50)
[2019-04-06] MEDS: ARIPiprazole 5 MG TAB PO SCH (22:50)
[2019-04-06] MEDS: CALCIUM CARBONATE/VITAMIN D3 1 TAB TABLET PO SCH (22:50)
[2019-04-06] MEDS: GABAPENTIN 100 MG CAPSULE PO SCH (22:50)
[2019-04-06] MEDS: clonazePAM 0.5 MG TABLET PO SCH (22:51)
[2019-04-07] MEDS ORDERED: traMADol HCL HCL 50 MG TABLET (ULTRAM) ONE (00:06)
[2019-04-07 00:31] VITALS: BP_SYST 116
[2019-04-07] MEDS: PIPERACILLIN/TAZO 2.25G/DEX-IS 50 ML IV SCH ×4 (02:04→23:20)
[2019-04-07] MEDS: NORMAL SALINE 5 ML DISP.SYRIN IVF SCH ×3 (02:05→23:13)
[2019-04-07] MEDS: FUROSEMIDE 40 MG/4 ML VIAL IVP SCH ×2 (02:05→23:12)
[2019-04-07] MEDS: CITALOPRAM HYDROBROMIDE 20 MG TABLET PO SCH (09:00)
[2019-04-07 12:25] VITALS: BP_SYST 126
[2019-04-07 16:31] VITALS: BP_SYST 135
[2019-04-07 17:24] LABS: CALCIUM 9.9 mg/dL (8.4-11.0); CREATININE 3.48 mg/dL (0.55-1.30); POTASSIUM 3.6 mmol/L (3.5-5.1)
[2019-04-07 17:28] LABS: BASOPHILS # (AUTO) 0.1 K/uL (0.0-0.2); BASOPHILS % (AUTO) 0.7 % (0.0-2.0); EOSINOPHILS # (AUTO) 0.2 K/uL (0.0-0.4); EOSINOPHILS % (AUTO) 1.7 % (0.0-4.0); HEMATOCRIT 39.9 % (36-48); HEMOGLOBIN 13.1 g/dL (12.0-16.0); LYMPHOCYTES # (AUTO) 0.7 K/uL (1.0-5.5); LYMPHOCYTES % (AUTO) 7.9 % (20.5-51.5); MEAN CORPUSCULAR HEMOGLOBIN 29 pg (27-31); MEAN CORPUSCULAR HGB CONC 33 % (32-36); MEAN CORPUSCULAR VOLUME 88 fL (79.0-98.0); MONOCYTES # (AUTO) 0.5 K/uL (0.0-1.0); MONOCYTES % (AUTO) 5.3 % (1.7-9.3); NEUTROPHILS # (AUTO) 7.9 K/uL (1.8-7.7); NEUTROPHILS % (AUTO) 84.4 % (40.0-70.0); PLATELET COUNT (AUTO) 265 K/uL (130-430); RED BLOOD CELL COUNT(AUTO) 4.53 MIL/uL (4.2-6.2); RED CELL DISTRIBUTION WIDTH 15.4 % (9.0-15.0); WHITE BLOOD COUNT (AUTO) 9.4 K/uL (4.8-10.8)
[2019-04-07] MEDS: MELOXICAM 7.5 MG TABLET PO SCH (18:00)
[2019-04-07 20:06] VITALS: BP_SYST 154
[2019-04-07] MEDS: GABAPENTIN 100 MG CAPSULE PO SCH (23:04)
[2019-04-07] MEDS: clonazePAM 0.5 MG TABLET PO SCH (23:08)
[2019-04-07] MEDS: CALCIUM CARBONATE/VITAMIN D3 1 TAB TABLET PO SCH ×2 (23:11→23:23)
[2019-04-07] MEDS: BENZTROPINE MESYLATE 1 MG TABLET PO SCH (23:11)
[2019-04-07] MEDS: ARIPiprazole 5 MG TAB PO SCH (23:12)
[2019-04-07] MEDS: traMADol HCL HCL 50 MG TABLET (ULTRAM) PO PRN (23:29)
[2019-04-08] VITALS: BP_SYST 114
[2019-04-08] MEDS: PIPERACILLIN/TAZO 2.25G/DEX-IS 50 ML IV SCH ×4 (04:00→21:13)
[2019-04-08] MEDS: NORMAL SALINE 5 ML DISP.SYRIN IVF SCH ×3 (06:11→21:14)
[2019-04-08] MEDS: traMADol HCL HCL 50 MG TABLET (ULTRAM) PO PRN ×3 (06:11→21:13)
[2019-04-08 08:00] VITALS: BP_SYST 109
[2019-04-08 09:36] LABS: ALBUMIN 3.1 g/dL (3.4-4.8); CALCIUM 9.6 mg/dL (8.4-11.0); CREATININE 3.51 mg/dL (0.55-1.30); POTASSIUM 3.8 mmol/L (3.5-5.1); TOTAL BILIRUBIN 0.5 mg/dL (0.0-1.0)
[2019-04-08] MEDS: GABAPENTIN 100 MG CAPSULE PO SCH ×2 (09:36→21:00)
[2019-04-08] MEDS: clonazePAM 0.5 MG TABLET PO SCH ×2 (09:36→21:00)
[2019-04-08] MEDS: CITALOPRAM HYDROBROMIDE 20 MG TABLET PO SCH (09:36)
[2019-04-08] MEDS: FUROSEMIDE 40 MG/4 ML VIAL IVP SCH (09:36)
[2019-04-08] MEDS: BENZTROPINE MESYLATE 1 MG TABLET PO SCH ×2 (09:37→21:00)
[2019-04-08] MEDS: CALCIUM CARBONATE/VITAMIN D3 1 TAB TABLET PO SCH ×2 (09:37→20:59)
[2019-04-08 09:45] LABS: BASOPHILS # (AUTO) 0.1 K/uL (0.0-0.2); BASOPHILS % (AUTO) 0.8 % (0.0-2.0); EOSINOPHILS # (AUTO) 0.2 K/uL (0.0-0.4); EOSINOPHILS % (AUTO) 2.5 % (0.0-4.0); HEMATOCRIT 38.6 % (36-48); LYMPHOCYTES # (AUTO) 0.8 K/uL (1.0-5.5); LYMPHOCYTES % (AUTO) 9.8 % (20.5-51.5); MEAN CORPUSCULAR HEMOGLOBIN 29 pg (27-31); MEAN CORPUSCULAR HGB CONC 34 % (32-36); MEAN CORPUSCULAR VOLUME 87 fL (79.0-98.0); MONOCYTES # (AUTO) 0.5 K/uL (0.0-1.0); MONOCYTES % (AUTO) 6.3 % (1.7-9.3); NEUTROPHILS # (AUTO) 6.9 K/uL (1.8-7.7); NEUTROPHILS % (AUTO) 80.6 % (40.0-70.0); PLATELET COUNT (AUTO) 246 K/uL (130-430); RED BLOOD CELL COUNT(AUTO) 4.45 MIL/uL (4.2-6.2); RED CELL DISTRIBUTION WIDTH 15.5 % (9.0-15.0); WHITE BLOOD COUNT (AUTO) 8.6 K/uL (4.8-10.8)
[2019-04-08 16:36] VITALS: BP_SYST 124
[2019-04-08] MEDS: MELOXICAM 7.5 MG TABLET PO SCH (17:00)
[2019-04-08 20:00] VITALS: BP_SYST 115
[2019-04-08] MEDS: ARIPiprazole 5 MG TAB PO SCH (20:59)
[2019-04-08] MEDS: FUROSEMIDE 20 MG TABLET PO SCH (21:01)
[2019-04-09] VITALS (7 sets, daily range): BP systolic 101–129
[2019-04-09] MEDS: NORMAL SALINE 5 ML DISP.SYRIN IVF SCH ×3 (05:27→21:05)
[2019-04-09] MEDS: PIPERACILLIN/TAZO 2.25G/DEX-IS 50 ML IV SCH ×4 (05:27→21:05)
[2019-04-09 08:11] LABS: ALBUMIN 2.9 g/dL (3.4-4.8); CALCIUM 9.6 mg/dL (8.4-11.0); CREATININE 3.49 mg/dL (0.55-1.30); POTASSIUM 3.6 mmol/L (3.5-5.1); TOTAL BILIRUBIN 0.6 mg/dL (0.0-1.0)
[2019-04-09 08:41] LABS: BASOPHILS # (AUTO) 0.1 K/uL (0.0-0.2); EOSINOPHILS # (AUTO) 0.2 K/uL (0.0-0.4); EOSINOPHILS % (AUTO) 3.2 % (0.0-4.0); HEMATOCRIT 41.1 % (36-48); HEMOGLOBIN 13.5 g/dL (12.0-16.0); LYMPHOCYTES # (AUTO) 0.7 K/uL (1.0-5.5); LYMPHOCYTES % (AUTO) 9.3 % (20.5-51.5); MEAN CORPUSCULAR HEMOGLOBIN 29 pg (27-31); MEAN CORPUSCULAR HGB CONC 33 % (32-36); MEAN CORPUSCULAR VOLUME 88 fL (79.0-98.0); MONOCYTES # (AUTO) 0.5 K/uL (0.0-1.0); NEUTROPHILS # (AUTO) 6.1 K/uL (1.8-7.7); NEUTROPHILS % (AUTO) 79.5 % (40.0-70.0); PLATELET COUNT (AUTO) 284 K/uL (130-430); RED BLOOD CELL COUNT(AUTO) 4.67 MIL/uL (4.2-6.2); RED CELL DISTRIBUTION WIDTH 15.9 % (9.0-15.0); WHITE BLOOD COUNT (AUTO) 7.6 K/uL (4.8-10.8)
[2019-04-09] MEDS: clonazePAM 0.5 MG TABLET PO SCH ×2 (09:42→20:21)
[2019-04-09] MEDS: GABAPENTIN 100 MG CAPSULE PO SCH ×2 (09:42→20:21)
[2019-04-09] MEDS: CITALOPRAM HYDROBROMIDE 20 MG TABLET PO SCH (09:43)
[2019-04-09] MEDS: FUROSEMIDE 20 MG TABLET PO SCH ×2 (09:43→20:22)
[2019-04-09] MEDS: CALCIUM CARBONATE/VITAMIN D3 1 TAB TABLET PO SCH ×2 (09:43→20:21)
[2019-04-09] MEDS: BENZTROPINE MESYLATE 1 MG TABLET PO SCH ×2 (09:43→20:22)
[2019-04-09] MEDS: traMADol HCL HCL 50 MG TABLET (ULTRAM) PO PRN ×2 (09:44→18:50)
[2019-04-09] MEDS: MELOXICAM 7.5 MG TABLET PO SCH (18:00)
[2019-04-09] MEDS: ARIPiprazole 5 MG TAB PO SCH (20:21)
[2019-04-10] MEDS: PIPERACILLIN/TAZO 2.25G/DEX-IS 50 ML IV SCH ×5 (04:00→22:44)
[2019-04-10] MEDS: NORMAL SALINE 5 ML DISP.SYRIN IVF SCH ×3 (06:00→23:18)
[2019-04-10] MEDS: traMADol HCL HCL 50 MG TABLET (ULTRAM) PO PRN (06:38)
[2019-04-10 08:00] VITALS: BP_SYST 110
[2019-04-10] MEDS: GABAPENTIN 100 MG CAPSULE PO SCH ×2 (08:48→21:09)
[2019-04-10] MEDS: clonazePAM 0.5 MG TABLET PO SCH ×2 (08:48→21:09)
[2019-04-10] MEDS: CALCIUM CARBONATE/VITAMIN D3 1 TAB TABLET PO SCH ×2 (08:49→21:09)
[2019-04-10] MEDS: BENZTROPINE MESYLATE 1 MG TABLET PO SCH ×2 (08:49→21:07)
[2019-04-10] MEDS: FUROSEMIDE 20 MG TABLET PO SCH ×2 (08:49→21:09)
[2019-04-10] MEDS: CITALOPRAM HYDROBROMIDE 20 MG TABLET PO SCH (08:49)
[2019-04-10 12:00] VITALS: BP_SYST 129
[2019-04-10 16:00] VITALS: BP_SYST 125
[2019-04-10] MEDS: MELOXICAM 7.5 MG TABLET PO SCH (18:00)
[2019-04-10] MEDS: ARIPiprazole 5 MG TAB PO SCH (21:09)
[2019-04-10 23:46] VITALS: BP_SYST 125
[2019-04-11 01:38] VITALS: BP_SYST 126
[2019-04-11] MEDS: NORMAL SALINE 5 ML DISP.SYRIN IVF SCH ×2 (05:11→14:58)
[2019-04-11 07:41] VITALS: BP_SYST 144
[2019-04-11] MEDS: BENZTROPINE MESYLATE 1 MG TABLET PO SCH (08:56)
[2019-04-11] MEDS: CALCIUM CARBONATE/VITAMIN D3 1 TAB TABLET PO SCH (08:56)
[2019-04-11] MEDS: clonazePAM 0.5 MG TABLET PO SCH (08:56)
[2019-04-11] MEDS: FUROSEMIDE 20 MG TABLET PO SCH (08:56)
[2019-04-11] MEDS: CITALOPRAM HYDROBROMIDE 20 MG TABLET PO SCH (08:56)
[2019-04-11] MEDS: GABAPENTIN 100 MG CAPSULE PO SCH (08:56)
[2019-04-11 09:19] LABS: BASOPHILS # (AUTO) 0.1 K/uL (0.0-0.2); BASOPHILS % (AUTO) 1.2 % (0.0-2.0); EOSINOPHILS # (AUTO) 0.3 K/uL (0.0-0.4); EOSINOPHILS % (AUTO) 4.1 % (0.0-4.0); HEMATOCRIT 39.2 % (36-48); HEMOGLOBIN 13.1 g/dL (12.0-16.0); LYMPHOCYTES % (AUTO) 13.4 % (20.5-51.5); MEAN CORPUSCULAR HEMOGLOBIN 29 pg (27-31); MEAN CORPUSCULAR HGB CONC 34 % (32-36); MEAN CORPUSCULAR VOLUME 88 fL (79.0-98.0); MONOCYTES # (AUTO) 0.4 K/uL (0.0-1.0); MONOCYTES % (AUTO) 5.2 % (1.7-9.3); NEUTROPHILS # (AUTO) 5.8 K/uL (1.8-7.7); NEUTROPHILS % (AUTO) 76.1 % (40.0-70.0); PLATELET COUNT (AUTO) 303 K/uL (130-430); RED BLOOD CELL COUNT(AUTO) 4.47 MIL/uL (4.2-6.2); RED CELL DISTRIBUTION WIDTH 15.6 % (9.0-15.0); WHITE BLOOD COUNT (AUTO) 7.6 K/uL (4.8-10.8)
[2019-04-11 09:21] LABS: CALCIUM 10.1 mg/dL (8.4-11.0); CREATININE 3.03 mg/dL (0.55-1.30); POTASSIUM 3.2 mmol/L (3.5-5.1)
[2019-04-11] MEDS ORDERED: POTASSIUM CHLORIDE 20 MEQ TAB.PRT.SR PO ONE (10:00)
[2019-04-11] MEDS: PIPERACILLIN/TAZO 2.25G/DEX-IS 50 ML IV SCH (10:46)
[2019-04-11 11:40] VITALS: BP_SYST 112
[2019-04-11 15:41] VITALS: BP_SYST 116
[2019-04-11] MEDS: MELOXICAM 7.5 MG TABLET PO SCH (17:18)
[2019-04-11 19:48] VITALS: BP_SYST 110
[2019-04-13] MEDS ORDERED: VITAMIN D2 PO SCH (09:00)
[2019-04-27 15:19] LABS: CALCIUM 9.6 mg/dL (8.4-11.0); CREATININE 3.17 mg/dL (0.55-1.30)
== END 2019-04-11 21:50 | DRG 683 ==
LOC: SMU 17:40
PROVIDERS: ADMIT Family Medicine; ATTEND Family Medicine
DX: N17.9 Acute kidney failure, unspecified (principal); L03.115 Cellulitis of right lower limb; L03.116 Cellulitis of left lower limb; N18.4 Chronic kidney disease, stage 4 (severe); F32.9 Major depressive disorder, single episode, unspecified; M19.90 Unspecified osteoarthritis, unspecified site; I12.9 Hypertensive chronic kidney disease with stage 1 through stage 4 chronic kidney disease, or unspecified chronic kidney disease; F17.210 Nicotine dependence, cigarettes, uncomplicated; Z96.649 Presence of unspecified artificial hip joint; Z88.8 Allergy status to other drugs, medicaments and biological substances; Z79.899 Other long term (current) drug therapy; Z88.6 Allergy status to analgesic agent
CPT/HCPCS: 36415; 80048; 80053; 81000-TC; 85025; 87086; J1940; J2543

== ENCOUNTER 2019-07-25 15:08 | Inpatient (IN) | payer OTHER, MEDICAID ==
[~2019-07-25] VITALS: Ht 165.1 cm; Wt 109.0 kg
[2019-07-25 15:08] VITALS: BP_SYST 111
[~2019-07-25 15:08] MED LIST changes: -BENZ2AMP PO; +BENZ2TAB65 PO; +CALC-823 PO; +CHOL500037 PO; +ESCI10TA PO; +FURO-150 PO; +MELO15TA13 PO; -MUPI1OIN4 TP
[2019-07-25 17:26] LABS: EOSINOPHILS # (AUTO) 0.3 K/uL (0.0-0.4); HEMOGLOBIN 10.1 g/dL (12.0-16.0); MONOCYTES # (AUTO) 0.6 K/uL (0.0-1.0); RED CELL DISTRIBUTION WIDTH 15.6 % (9.0-15.0)
[2019-07-25 17:31] LABS: ANION GAP 15 (5-15); CALCIUM 8.7 mg/dL (8.4-11.0); CHLORIDE 108 mmol/L (98-107); CREATININE 3.06 mg/dL (0.55-1.30); GLUCOSE 80 mg/dL (70-99); POTASSIUM 4.6 mmol/L (3.5-5.1); SODIUM SERUM 143 mmol/L (136-145); UREA NITROGEN, BLOOD 79 mg/dL (8-21)
[2019-07-25 17:36] LABS: BILIRUBIN,URINE NEGATIVE (NEGATIVE); BLOOD, URINE NEGATIVE (NEGATIVE); CLARITY/URINE CLEAR (CLEAR); COLOR,URINE YELLOW (YELLOW); GLUCOSE,URINE NEGATIVE (NEGATIVE); KETONES,URINE NEGATIVE (NEGATIVE); LEUKOCYTE ESTERASE ,URINE TRACE (NEGATIVE); NITRITE, URINE NEGATIVE (NEGATIVE); PROTEIN URINE NEGATIVE (NEGATIVE); UROBILINOGEN,URINE 0.2 (0.2-1.0)
[2019-07-25 17:37] LABS: BASOPHILS # (AUTO) 0.4 K/uL (0.0-0.2); BASOPHILS % (AUTO) 3.7 % (0.0-2.0); EOSINOPHILS % (AUTO) 2.7 % (0.0-4.0); HEMATOCRIT 30.8 % (36-48); LYMPHOCYTES # (AUTO) 1.5 K/uL (1.0-5.5); LYMPHOCYTES % (AUTO) 14.5 % (20.5-51.5); MEAN CORPUSCULAR HEMOGLOBIN 30 pg (27-31); MEAN CORPUSCULAR HGB CONC 33 % (32-36); MEAN CORPUSCULAR VOLUME 91 fL (79.0-98.0); MONOCYTES % (AUTO) 5.4 % (1.7-9.3); NEUTROPHILS # (AUTO) 7.7 K/uL (1.8-7.7); NEUTROPHILS % (AUTO) 73.7 % (40.0-70.0); PLATELET COUNT (AUTO) 249 K/uL (130-430); WHITE BLOOD COUNT (AUTO) 10.4 K/uL (4.8-10.8)
[2019-07-25 17:39] LABS: ALANINE AMINOTRANSFERASE 44 U/L (12-78); ALBUMIN 3.3 g/dL (3.4-4.8); ASPARTATE AMINOTRANSFERASE 33 U/L (10-37); TOTAL BILIRUBIN 0.3 mg/dL (0.0-1.0)
[2019-07-25 17:41] LABS: GFR AFRICAN AMERICAN 20 mL/min (>90)
[2019-07-25 17:42] LABS: ACETAMINOPHEN < 1 ug/mL (1-30); ALCOHOL, BLOOD < 3 mg/dL (<10)
[2019-07-25 17:49] LABS: BARBITURATE, URINE NEGATIVE (NEG <=200); BENZODIAZEPINE, URINE NEGATIVE (NEG <=150); CANNABINOID, URINE NEGATIVE (NEG <=50); COCAINE, URINE NEGATIVE (NEG <=150); METHAMPHETAMINES SCREEN,URINE NEGATIVE (NEG <=500); OPIATE, URINE NEGATIVE (NEG <=100); PHENCYCLIDINE SCREEN,URINE NEGATIVE (NEG <=25); UR TRICYCLIC ANTIDEPRESSANTS NEGATIVE (NEG <=300); URINE AMPHETAMINE NEGATIVE (NEG <=500); URINE METHADONE NEGATIVE (NEG <=200); URINE OXYCODONE SCREEN NEGATIVE (NEG <=100); URINE PROPOXYPHENE SCREEN NEGATIVE (NEG <=300)
[2019-07-25 17:57] LABS: BACTERIA,URINE MODERATE /HPF (None Seen); RBC,URINE 0-3 /HPF (0-3)
[2019-07-25 17:58] LABS: FINE GRANULAR CASTS,URINE 0-10 /LPF (None Seen); MUCUS,URINE 1+ /LPF (None Seen)
[2019-07-25] MEDS ORDERED: PIPERACILLIN/TAZO 3.375 GM in NS 50 ML IV ONE (18:00)
[2019-07-25] MEDS ORDERED: PIPERACILLIN/TAZOBACTAM 3.375 GM/VIAL (ZOSYN) IV ONE (18:13)
[2019-07-25] MEDS ORDERED: PIPERACILLIN/TAZO 3.375/DEX-IS 50 ML IV SCH (19:15)
[2019-07-25 19:42] VITALS: BP_SYST 105
[2019-07-25 20:00] VITALS: BP_SYST 108
[2019-07-25] MEDS ORDERED: NON-FORMULARY MEDICATION (Fesoterodine Fumarate (Toviaz) 4 MG) PO SCH (21:00)
[2019-07-25] MEDS: BENZTROPINE MESYLATE 1 MG TABLET PO SCH (21:49)
[2019-07-25] MEDS: GABAPENTIN 300 MG CAPSULE PO SCH (21:50)
[2019-07-25] MEDS: OXYBUTYNIN CHLORIDE 5 MG TABLET PO SCH (21:50)
[2019-07-25] MEDS: CALCIUM CARBONATE/VITAMIN D3 1 TAB TABLET PO SCH (21:50)
[2019-07-25] MEDS: clonazePAM 0.5 MG TABLET PO SCH (21:50)
[2019-07-26 00:27] VITALS: BP_SYST 104
[2019-07-26] MEDS: PIPERACILLIN/TAZO 2.25G/DEX-IS 50 ML IV SCH ×4 (05:39→23:17)
[2019-07-26] MEDS: clonazePAM 0.5 MG TABLET PO SCH ×2 (09:39→20:37)
[2019-07-26] MEDS: GABAPENTIN 300 MG CAPSULE PO SCH (09:39)
[2019-07-26] MEDS: OXYBUTYNIN CHLORIDE 5 MG TABLET PO SCH ×2 (09:39→20:37)
[2019-07-26] MEDS: BENZTROPINE MESYLATE 1 MG TABLET PO SCH ×2 (09:39→20:37)
[2019-07-26] MEDS: CALCIUM CARBONATE/VITAMIN D3 1 TAB TABLET PO SCH ×2 (09:39→20:37)
[2019-07-26] MEDS: FUROSEMIDE 20 MG TABLET PO SCH (09:44)
[2019-07-26 09:49] VITALS: BP_SYST 114
[2019-07-26 12:32] VITALS: BP_SYST 116
[2019-07-26 16:46] VITALS: BP_SYST 135
[2019-07-26 17:21] LABS: ALBUMIN 3.1 g/dL (3.4-4.8); CALCIUM 8.8 mg/dL (8.4-11.0); CREATININE 3.21 mg/dL (0.55-1.30); POTASSIUM 3.6 mmol/L (3.5-5.1); TOTAL BILIRUBIN 0.2 mg/dL (0.0-1.0)
[2019-07-26] MEDS: MELOXICAM 7.5 MG TABLET PO SCH (18:03)
[2019-07-26 20:00] VITALS: BP_SYST 113
[2019-07-26 20:18] LABS: INR 1.1 (0.8-1.2); PROTHROMBIN TIME 10.8 SECS (9.5-12.5)
[2019-07-26] MEDS: GABAPENTIN 100 MG CAPSULE PO SCH (20:37)
[2019-07-26] MEDS: ACETAMINOPHEN 500 MG TABLET PO PRN (21:58)
[2019-07-26] MEDS: POTASSIUM CHLORIDE IV SCH (23:18)
[2019-07-26] MEDS: SODIUM BICARBONATE IV SCH (23:18)
[2019-07-26] MEDS: D5W IV SCH (23:18)
[2019-07-27] MEDS: PIPERACILLIN/TAZO 2.25G/DEX-IS 50 ML IV SCH ×5 (00:22→23:18)
[2019-07-27 00:45] VITALS: BP_SYST 106
[2019-07-27 05:42] LABS: CREATININE 3.44 mg/dL (0.55-1.30); POTASSIUM 3.6 mmol/L (3.5-5.1); TOTAL BILIRUBIN 0.2 mg/dL (0.0-1.0)
[2019-07-27 07:15] LABS: BASOPHILS # (AUTO) 0.1 K/uL (0.0-0.2); BASOPHILS % (AUTO) 1.4 % (0.0-2.0); EOSINOPHILS # (AUTO) 0.2 K/uL (0.0-0.4); EOSINOPHILS % (AUTO) 4.8 % (0.0-4.0); HEMATOCRIT 28.3 % (36-48); HEMOGLOBIN 9.1 g/dL (12.0-16.0); LYMPHOCYTES # (AUTO) 1.4 K/uL (1.0-5.5); LYMPHOCYTES % (AUTO) 30.2 % (20.5-51.5); MEAN CORPUSCULAR HEMOGLOBIN 30 pg (27-31); MEAN CORPUSCULAR HGB CONC 32 % (32-36); MEAN CORPUSCULAR VOLUME 92 fL (79.0-98.0); MONOCYTES # (AUTO) 0.4 K/uL (0.0-1.0); MONOCYTES % (AUTO) 9.8 % (1.7-9.3); NEUTROPHILS # (AUTO) 2.4 K/uL (1.8-7.7); NEUTROPHILS % (AUTO) 53.8 % (40.0-70.0); PLATELET COUNT (AUTO) 207 K/uL (130-430); RED BLOOD CELL COUNT(AUTO) 3.07 MIL/uL (4.2-6.2); RED CELL DISTRIBUTION WIDTH 15.4 % (9.0-15.0); WHITE BLOOD COUNT (AUTO) 4.5 K/uL (4.8-10.8)
[2019-07-27] MEDS: ACETAMINOPHEN 500 MG TABLET PO PRN (10:22)
[2019-07-27 11:30] VITALS: BP_SYST 105
[2019-07-27] MEDS: FUROSEMIDE 20 MG TABLET PO SCH (11:31)
[2019-07-27] MEDS: GABAPENTIN 100 MG CAPSULE PO SCH ×2 (11:31→21:42)
[2019-07-27] MEDS: BENZTROPINE MESYLATE 1 MG TABLET PO SCH ×2 (11:31→21:41)
[2019-07-27] MEDS: OXYBUTYNIN CHLORIDE 5 MG TABLET PO SCH ×2 (11:31→21:41)
[2019-07-27] MEDS: CALCIUM CARBONATE/VITAMIN D3 1 TAB TABLET PO SCH ×2 (11:31→21:42)
[2019-07-27] MEDS: clonazePAM 0.5 MG TABLET PO SCH ×2 (11:31→21:42)
[2019-07-27] MEDS: D5W IV SCH (11:32)
[2019-07-27] MEDS: SODIUM BICARBONATE IV SCH (11:32)
[2019-07-27] MEDS: POTASSIUM CHLORIDE IV SCH (11:32)
[2019-07-27 12:23] VITALS: BP_SYST 107
[2019-07-27 16:45] VITALS: BP_SYST 110
[2019-07-27] MEDS: MELOXICAM 7.5 MG TABLET PO SCH (17:14)
[2019-07-27 19:00] VITALS: BP_SYST 108
[2019-07-27 20:00] VITALS: BP_SYST 108
[2019-07-28 00:53] VITALS: BP_SYST 133
[2019-07-28 06:57] LABS: HEMATOCRIT 27.6 % (36-48); HEMOGLOBIN 9.1 g/dL (12.0-16.0); MEAN CORPUSCULAR HEMOGLOBIN 30 pg (27-31); MEAN CORPUSCULAR HGB CONC 33 % (32-36); MEAN CORPUSCULAR VOLUME 90 fL (79.0-98.0); PLATELET COUNT (AUTO) 206 K/uL (130-430); RED BLOOD CELL COUNT(AUTO) 3.05 MIL/uL (4.2-6.2); RED CELL DISTRIBUTION WIDTH 15.4 % (9.0-15.0)
[2019-07-28 07:41] LABS: ALBUMIN 2.8 g/dL (3.4-4.8); CALCIUM 8.8 mg/dL (8.4-11.0); CREATININE 2.93 mg/dL (0.55-1.30); POTASSIUM 3.5 mmol/L (3.5-5.1); TOTAL BILIRUBIN 0.2 mg/dL (0.0-1.0)
[2019-07-28 07:55] VITALS: BP_SYST 127
[2019-07-28] MEDS: CALCIUM CARBONATE/VITAMIN D3 1 TAB TABLET PO SCH ×2 (08:12→20:50)
[2019-07-28] MEDS: OXYBUTYNIN CHLORIDE 5 MG TABLET PO SCH ×2 (08:12→20:50)
[2019-07-28] MEDS: GABAPENTIN 100 MG CAPSULE PO SCH ×2 (08:12→20:50)
[2019-07-28] MEDS: clonazePAM 0.5 MG TABLET PO SCH ×2 (08:12→20:50)
[2019-07-28] MEDS: FUROSEMIDE 20 MG TABLET PO SCH (08:12)
[2019-07-28] MEDS: BENZTROPINE MESYLATE 1 MG TABLET PO SCH ×2 (08:12→20:50)
[2019-07-28 08:39] LABS: BAND % (MANUAL) 1 % (0-6); BASOPHILS % (MANUAL) 0 % (0-2); EOSINOPHILS % (MANUAL) 4 % (0-7); LYMPHOCYTES % (MANUAL) 26 % (20-46); MONOCYTES % (MANUAL) 12 % (0-11)
[2019-07-28] MEDS: ACETAMINOPHEN 500 MG TABLET PO PRN (12:40)
[2019-07-28 12:41] VITALS: BP_SYST 127
[2019-07-28 16:16] VITALS: BP_SYST 127
[2019-07-28] MEDS: MELOXICAM 7.5 MG TABLET PO SCH (17:15)
[2019-07-28 20:00] VITALS: BP_SYST 124
[2019-07-29 01:10] VITALS: BP_SYST 142
[2019-07-29] MEDS: PIPERACILLIN/TAZO 2.25G/DEX-IS 50 ML IV SCH ×3 (06:01→17:15)
[2019-07-29] MEDS ORDERED: PIPERACILLIN/TAZOBACTAM 2.25 GM VIAL IV ONE (06:04)
[2019-07-29 06:40] LABS: CALCIUM 9.3 mg/dL (8.4-11.0); CREATININE 2.56 mg/dL (0.55-1.30); POTASSIUM 3.7 mmol/L (3.5-5.1)
[2019-07-29 08:21] VITALS: BP_SYST 121
[2019-07-29] MEDS: FUROSEMIDE 20 MG TABLET PO SCH (09:20)
[2019-07-29] MEDS: OXYBUTYNIN CHLORIDE 5 MG TABLET PO SCH ×2 (09:20→20:38)
[2019-07-29] MEDS: CALCIUM CARBONATE/VITAMIN D3 1 TAB TABLET PO SCH ×2 (09:20→20:38)
[2019-07-29] MEDS: clonazePAM 0.5 MG TABLET PO SCH ×2 (09:20→20:38)
[2019-07-29] MEDS: GABAPENTIN 100 MG CAPSULE PO SCH ×2 (09:21→20:38)
[2019-07-29] MEDS: BENZTROPINE MESYLATE 1 MG TABLET PO SCH ×2 (09:21→20:38)
[2019-07-29] MEDS: ACETAMINOPHEN 500 MG TABLET PO PRN (09:23)
[2019-07-29 12:00] VITALS: BP_SYST 126
[2019-07-29 16:16] VITALS: BP_SYST 122
[2019-07-29] MEDS: MELOXICAM 7.5 MG TABLET PO SCH (17:16)
[2019-07-29] MEDS ORDERED: MECLIZINE HCL 25 MG TABLET (ANITVERT) PO ONE (19:30)
[2019-07-29 20:00] VITALS: BP_SYST 114
[2019-07-30] MEDS: PIPERACILLIN/TAZO 2.25G/DEX-IS 50 ML IV SCH ×5 (00:08→23:20)
[2019-07-30 01:48] VITALS: BP_SYST 120
[2019-07-30 06:23] LABS: BASOPHILS % (AUTO) 0.8 % (0.0-2.0); EOSINOPHILS # (AUTO) 0.3 K/uL (0.0-0.4); EOSINOPHILS % (AUTO) 4.9 % (0.0-4.0); HEMOGLOBIN 10.1 g/dL (12.0-16.0); LYMPHOCYTES # (AUTO) 0.9 K/uL (1.0-5.5); LYMPHOCYTES % (AUTO) 14.8 % (20.5-51.5); MEAN CORPUSCULAR HEMOGLOBIN 30 pg (27-31); MEAN CORPUSCULAR HGB CONC 33 % (32-36); MEAN CORPUSCULAR VOLUME 91 fL (79.0-98.0); MONOCYTES # (AUTO) 0.4 K/uL (0.0-1.0); MONOCYTES % (AUTO) 6.8 % (1.7-9.3); NEUTROPHILS # (AUTO) 4.7 K/uL (1.8-7.7); NEUTROPHILS % (AUTO) 72.7 % (40.0-70.0); PLATELET COUNT (AUTO) 241 K/uL (130-430); RED BLOOD CELL COUNT(AUTO) 3.42 MIL/uL (4.2-6.2); RED CELL DISTRIBUTION WIDTH 15.1 % (9.0-15.0); WHITE BLOOD COUNT (AUTO) 6.4 K/uL (4.8-10.8)
[2019-07-30 06:30] LABS: CALCIUM 9.2 mg/dL (8.4-11.0); CREATININE 2.73 mg/dL (0.55-1.30)
[2019-07-30 08:33] VITALS: BP_SYST 125
[2019-07-30] MEDS: OXYBUTYNIN CHLORIDE 5 MG TABLET PO SCH ×2 (08:46→19:56)
[2019-07-30] MEDS: clonazePAM 0.5 MG TABLET PO SCH ×2 (08:46→19:56)
[2019-07-30] MEDS: CALCIUM CARBONATE/VITAMIN D3 1 TAB TABLET PO SCH ×2 (08:46→19:55)
[2019-07-30] MEDS: FUROSEMIDE 20 MG TABLET PO SCH (08:47)
[2019-07-30] MEDS: GABAPENTIN 100 MG CAPSULE PO SCH ×2 (08:48→19:55)
[2019-07-30] MEDS: BENZTROPINE MESYLATE 1 MG TABLET PO SCH ×2 (08:48→19:56)
[2019-07-30 12:11] VITALS: BP_SYST 118
[2019-07-30 17:09] VITALS: BP_SYST 122; BP_SYST 125
[2019-07-30] MEDS: MELOXICAM 7.5 MG TABLET PO SCH (17:34)
[2019-07-30 19:50] VITALS: BP_SYST 150
[2019-07-30] MEDS: ACETAMINOPHEN 500 MG TABLET PO PRN (19:54)
[2019-07-30] MEDS: MECLIZINE HCL 25 MG TABLET (ANITVERT) PO PRN (20:35)
[2019-07-31 00:30] VITALS: BP_SYST 121
[2019-07-31] MEDS: PIPERACILLIN/TAZO 2.25G/DEX-IS 50 ML IV SCH ×2 (05:29→10:51)
[2019-07-31] MEDS: MECLIZINE HCL 25 MG TABLET (ANITVERT) PO PRN (07:56)
[2019-07-31 08:13] VITALS: BP_SYST 140
[2019-07-31] MEDS: clonazePAM 0.5 MG TABLET PO SCH (10:50)
[2019-07-31] MEDS: GABAPENTIN 100 MG CAPSULE PO SCH (10:50)
[2019-07-31] MEDS: FUROSEMIDE 20 MG TABLET PO SCH (10:50)
[2019-07-31] MEDS: BENZTROPINE MESYLATE 1 MG TABLET PO SCH (10:50)
[2019-07-31] MEDS: OXYBUTYNIN CHLORIDE 5 MG TABLET PO SCH (10:51)
[2019-07-31] MEDS: CALCIUM CARBONATE/VITAMIN D3 1 TAB TABLET PO SCH (10:51)
[2019-07-31 12:00] VITALS: BP_SYST 119
[2019-07-31 15:14] VITALS: BP_SYST 105
[2019-07-31 16:50] VITALS: BP_SYST 120
== END 2019-07-31 17:32 | disposition home health service (06) | DRG 682 ==
LOC: SED 15:08 → SMU 18:42
PROVIDERS: ADMIT Family Medicine; ATTEND Family Medicine
PROC: 02HV33Z Insertion of Infusion Device into Superior Vena Cava, Percutaneous Approach (ICD-10-PCS; principal; 2019-07-28)
PROC: B548ZZA Ultrasonography of Superior Vena Cava, Guidance (ICD-10-PCS; 2019-07-28)
DX: N17.9 Acute kidney failure, unspecified (principal); G93.41 Metabolic encephalopathy; L03.115 Cellulitis of right lower limb; L03.116 Cellulitis of left lower limb; I12.9 Hypertensive chronic kidney disease with stage 1 through stage 4 chronic kidney disease, or unspecified chronic kidney disease; N18.9 Chronic kidney disease, unspecified; M19.011 Primary osteoarthritis, right shoulder; T39.095A Adverse effect of salicylates, initial encounter; Y92.89 Other specified places as the place of occurrence of the external cause; Z88.8 Allergy status to other drugs, medicaments and biological substances; Z79.899 Other long term (current) drug therapy
CPT/HCPCS: 36415; 70450-TC; 71045; 80048; 80053; 80307; 81000-TC; 83605; 83880; 84484; 85007; 85025; 85027; 85610-TC; 85730-TC; 87040-TC; 87081; 87086; 87186-TC; 87230-TC; 93005; 96365; 97110-GP; 97116-GP; 99285; C1751; C1769; G0480; G0481; G0482; J2543; J3480; J7050; J7060; J8597

== ENCOUNTER 2020-12-30 06:40 | Day surgery (SDC) | payer OTHER, MEDICAID, SELFPAY ==
[2020-12-26 11:17] LABS: BASOPHILS # (AUTO) 0.1 K/uL (0.0-0.2); BASOPHILS % (AUTO) 0.6 % (0.0-2.0); EOSINOPHILS # (AUTO) 0.1 K/uL (0.0-0.4); EOSINOPHILS % (AUTO) 1.5 % (0.0-4.0); HEMATOCRIT 36.8 % (36-48); HEMOGLOBIN 12.3 g/dL (12.0-16.0); LYMPHOCYTES % (AUTO) 11.9 % (20.5-51.5); MEAN CORPUSCULAR HEMOGLOBIN 31 pg (27-31); MEAN CORPUSCULAR HGB CONC 33 % (32-36); MEAN CORPUSCULAR VOLUME 93 fL (79.0-98.0); MONOCYTES # (AUTO) 0.4 K/uL (0.0-1.0); PLATELET COUNT (AUTO) 268 K/uL (130-430); RED BLOOD CELL COUNT(AUTO) 3.94 MIL/uL (4.2-6.2); RED CELL DISTRIBUTION WIDTH 16.8 % (9.0-15.0); WHITE BLOOD COUNT (AUTO) 8.7 K/uL (4.8-10.8)
[2020-12-26 11:28] LABS: CALCIUM 10.4 mg/dL (8.4-11.0); CREATININE 3.56 mg/dL (0.55-1.30); POTASSIUM 4.3 mmol/L (3.5-5.1)
[2020-12-26 11:39] LABS: INR 0.9 (0.8-1.2); PROTHROMBIN TIME 9.9 SECS (9.5-12.5)
[2020-12-29 14:04] LABS: BILIRUBIN,URINE NEGATIVE (NEGATIVE); BLOOD, URINE NEGATIVE (NEGATIVE); COLOR,URINE YELLOW (YELLOW); GLUCOSE,URINE NEGATIVE (NEGATIVE); KETONES,URINE NEGATIVE (NEGATIVE); LEUKOCYTE ESTERASE ,URINE 2+ (NEGATIVE); NITRITE, URINE NEGATIVE (NEGATIVE); PROTEIN URINE NEGATIVE (NEGATIVE); UROBILINOGEN,URINE 0.2 (0.2-1.0)
[2020-12-29 14:10] LABS: CLARITY/URINE HAZY (CLEAR)
[2020-12-29 14:27] LABS: BACTERIA,URINE FEW /HPF (None Seen); MUCUS,URINE 2+ /LPF (None Seen); RBC,URINE 0-3 /HPF (0-3)
[~2020-12-30] VITALS: Ht 165.1 cm; Wt 101.2 kg
[~2020-12-30 06:40] MED LIST changes: -ARIP20TA4 PO; -CLON0.5T12 PO; +CLON0.5T4 PO
[2020-12-30] MEDS ORDERED: fentaNYL CITRATE/PF 100 MCG/2 ML AMP IVP ONE (09:38)
[2020-12-30] MEDS ORDERED: MIDAZOLAM HCL 5 MG/5 ML VIAL IVP ONE (09:38)
[2020-12-30] MEDS ORDERED: CEFAZOLIN 2 GM IVPB PREMIX 50 ML IV ONE (09:38)
[2020-12-30] MEDS ORDERED: DEXAMETHASONE SOD PHOSPHATE 4 MG/ML VIAL IVP ONE (09:38)
[2020-12-30] MEDS ORDERED: NS 1000 ML IV.SOLN IV ONE (09:38)
[2020-12-30] MEDS ORDERED: ACETAMINOPHEN I.V. 1000 MG 100 ML IV ONE (10:18)
[2020-12-30] MEDS ORDERED: HYDROmorphone 1 MG/ML INJ. CARTRIDGE IVP PRN (10:45)
[2020-12-30] MEDS ORDERED: HYDROmorphone 2 MG/ML VIAL IVP PRN (10:45)
[2020-12-30] MEDS ORDERED: HYDROmorphone 1 MG/ML INJ. CARTRIDGE ONE (11:17)
[2020-12-30 15:16] VITALS: BP_SYST 119
== END 2020-12-30 12:40 | disposition home or self-care (01) ==
LOC: SDS 06:40 → SMU 06:41 → SDS 12:40
PROVIDERS: ATTEND Orthopaedic Surgery
DX: M75.41 Impingement syndrome of right shoulder (principal); M71.342 Other bursal cyst, left hand; I12.0 Hypertensive chronic kidney disease with stage 5 chronic kidney disease or end stage renal disease; L57.0 Actinic keratosis; N18.6 End stage renal disease; F32.9 Major depressive disorder, single episode, unspecified; G43.909 Migraine, unspecified, not intractable, without status migrainosus; F17.210 Nicotine dependence, cigarettes, uncomplicated; Z79.899 Other long term (current) drug therapy; Z20.822 Contact with and (suspected) exposure to COVID-19
CPT/HCPCS: 36415; 71046-TC; 80048; 81000; 85025; 85610-TC; 85730-TC; 88304; 93005; J0131; J0690; J1100; J1170; J2250; J3010; J7030; U0003

== ENCOUNTER 2022-09-20 09:22 | Inpatient (IN) | payer OTHER, MEDICAID ==
[~2022-09-20] VITALS: Ht 165.1 cm; Wt 90.3 kg
[2022-09-20 09:55] VITALS: BP_SYST 147
[2022-09-20] MEDS ORDERED: VANCOMYCIN HCL 1,000 MG in D5W 250 ML IV ONE (10:00)
[2022-09-20] MEDS ORDERED: PIPERACILLIN/TAZO 3.375 GM in D5W 50 ML IV ONE (10:00)
[2022-09-20] MEDS ORDERED: HYDROcodone/ACETAMIN 5-325 MG TAB (NORCO/ VICODIN) PO ONE (10:00)
[2022-09-20] MEDS ORDERED: PIPERACILLIN/TAZOBACTAM 3.375 GM/VIAL (ZOSYN) IV ONE (10:24)
[2022-09-20 10:58] LABS: BASOPHILS % (AUTO) 0.5 % (0.0-2.0); EOSINOPHILS # (AUTO) 0.2 K/uL (0.0-0.4); EOSINOPHILS % (AUTO) 2.2 % (0.0-4.0); HEMATOCRIT 36.4 % (36-48); HEMOGLOBIN 11.7 g/dL (12.0-16.0); LYMPHOCYTES # (AUTO) 0.8 K/uL (1.0-5.5); MEAN CORPUSCULAR HEMOGLOBIN 28 pg (27-31); MEAN CORPUSCULAR HGB CONC 32 % (32-36); MEAN CORPUSCULAR VOLUME 86 fL (79.0-98.0); MONOCYTES # (AUTO) 0.5 K/uL (0.0-1.0); MONOCYTES % (AUTO) 7.7 % (1.7-9.3); NEUTROPHILS # (AUTO) 5.5 K/uL (1.8-7.7); NEUTROPHILS % (AUTO) 77.6 % (40.0-70.0); PLATELET COUNT (AUTO) 243 K/uL (130-430); RED BLOOD CELL COUNT(AUTO) 4.23 MIL/uL (4.2-6.2); RED CELL DISTRIBUTION WIDTH 15.9 % (9.0-15.0)
[2022-09-20 11:13] LABS: ANION GAP 7 (5-15); CALCIUM 9.2 mg/dL (8.4-11.0); CHLORIDE 104 mmol/L (98-107); CREATININE 2.17 mg/dL (0.55-1.30); GFR AFRICAN AMERICAN 29 mL/min (>90); GLUCOSE 95 mg/dL (70-99); UREA NITROGEN, BLOOD 49 mg/dL (8-21)
[2022-09-20 11:23] LABS: ALANINE AMINOTRANSFERASE 25 U/L (12-78); ALBUMIN 3.2 g/dL (3.4-4.8); ASPARTATE AMINOTRANSFERASE 14 U/L (10-37); TOTAL BILIRUBIN 0.3 mg/dL (0.0-1.0)
[2022-09-20 11:50] LABS: BILIRUBIN,URINE NEGATIVE (NEGATIVE); BLOOD, URINE NEGATIVE (NEGATIVE); CLARITY/URINE CLEAR (CLEAR); COLOR,URINE YELLOW (YELLOW); GLUCOSE,URINE NEGATIVE (NEGATIVE); KETONES,URINE NEGATIVE (NEGATIVE); LEUKOCYTE ESTERASE ,URINE 1+ (NEGATIVE); NITRITE, URINE NEGATIVE (NEGATIVE); PROTEIN URINE NEGATIVE (NEGATIVE); UROBILINOGEN,URINE 0.2 (0.2-1.0)
[2022-09-20 12:06] LABS: BACTERIA,URINE RARE /HPF (None Seen); RBC,URINE 0-3 /HPF (0-3)
[2022-09-20] MEDS ORDERED: FUROSEMIDE 40 MG/4 ML VIAL IVP ONE (12:15)
[2022-09-20] MEDS ORDERED: HYDR-3919 (12:28)
[2022-09-20] MEDS ORDERED: MORPHINE 4 MG INJ. 4 MG/ML VIAL IM ONE (12:30)
[2022-09-20] MEDS ORDERED: VANCOMYCIN HCL 1000 MG/VIAL IV ONE (13:34)
[2022-09-20] MEDS ORDERED: NALOXONE HCL 0.4 MG/ML AMP (NARCAN) IVP PRN ×2 (14:30→14:45)
[2022-09-20] MEDS ORDERED: LevALBUTEROL HCL 1.25 MG/0.5 ML *CONC.* VIAL.NEB (XOPENEX CONC.) INH PRN (14:45)
[2022-09-20 15:32] VITALS: BP_SYST 144
[2022-09-20 16:00] VITALS: BP_SYST 144
[2022-09-20] MEDS: HYDROcodone/ACETAMIN 5-325 MG TAB (NORCO/ VICODIN) PO PRN (16:44)
[2022-09-20] MEDS: PIPERACILLIN/TAZO 3.375/DEX-IS 50 ML IV SCH ×2 (17:06→23:32)
[2022-09-20 21:00] VITALS: BP_SYST 122
[2022-09-20] MEDS ORDERED: BENZTROPINE MESYLATE 2 MG PO SCH (21:00)
[2022-09-20] MEDS ORDERED: NON-FORMULARY MEDICATION (Fesoterodine Fumarate (Toviaz) 4 MG) PO SCH (21:00)
[2022-09-20] MEDS: GABAPENTIN 100 MG CAPSULE PO SCH (22:57)
[2022-09-20] MEDS: FUROSEMIDE 40 MG/4 ML VIAL IVP SCH (22:57)
[2022-09-20] MEDS: CALCIUM CARBONATE/VITAMIN D3 1 TAB TABLET PO SCH (22:57)
[2022-09-20] MEDS: clonazePAM 0.5 MG TABLET PO SCH (22:57)
[2022-09-20] MEDS: ENOXAPARIN SODIUM 30 MG/0.3 ML SYRINGE SUBCUT SCH (22:58)
[2022-09-20] MEDS: MORPHINE 2 MG/ML INJ. SYRINGE IVP PRN (23:31)
[2022-09-21 00:20] VITALS: BP_SYST 136
[2022-09-21] MEDS: MORPHINE 2 MG/ML INJ. SYRINGE IVP PRN (04:50)
[2022-09-21] MEDS: PIPERACILLIN/TAZO 3.375/DEX-IS 50 ML IV SCH ×4 (06:07→22:58)
[2022-09-21 07:18] LABS: BASOPHILS # (AUTO) 0.1 K/uL (0.0-0.2); BASOPHILS % (AUTO) 0.8 % (0.0-2.0); EOSINOPHILS # (AUTO) 0.1 K/uL (0.0-0.4); EOSINOPHILS % (AUTO) 1.6 % (0.0-4.0); HEMATOCRIT 34.1 % (36-48); HEMOGLOBIN 11.1 g/dL (12.0-16.0); LYMPHOCYTES # (AUTO) 1.2 K/uL (1.0-5.5); LYMPHOCYTES % (AUTO) 19.4 % (20.5-51.5); MEAN CORPUSCULAR HEMOGLOBIN 28 pg (27-31); MEAN CORPUSCULAR HGB CONC 33 % (32-36); MEAN CORPUSCULAR VOLUME 85 fL (79.0-98.0); MONOCYTES # (AUTO) 0.5 K/uL (0.0-1.0); MONOCYTES % (AUTO) 8.6 % (1.7-9.3); NEUTROPHILS # (AUTO) 4.2 K/uL (1.8-7.7); NEUTROPHILS % (AUTO) 69.6 % (40.0-70.0); PLATELET COUNT (AUTO) 220 K/uL (130-430); RED BLOOD CELL COUNT(AUTO) 4.01 MIL/uL (4.2-6.2); RED CELL DISTRIBUTION WIDTH 15.8 % (9.0-15.0); WHITE BLOOD COUNT (AUTO) 6.1 K/uL (4.8-10.8)
[2022-09-21 07:30] LABS: ALBUMIN 2.8 g/dL (3.4-4.8); CALCIUM 8.9 mg/dL (8.4-11.0); CREATININE 2.63 mg/dL (0.55-1.30); TOTAL BILIRUBIN 0.3 mg/dL (0.0-1.0)
[2022-09-21 07:45] VITALS: BP_SYST 97
[2022-09-21] MEDS: GABAPENTIN 100 MG CAPSULE PO SCH ×2 (09:00→20:45)
[2022-09-21] MEDS: clonazePAM 0.5 MG TABLET PO SCH ×2 (09:00→20:45)
[2022-09-21] MEDS ORDERED: ESCITALOPRAM OXALATE 10 MG TABLET PO SCH (09:00)
[2022-09-21] MEDS: CALCIUM CARBONATE/VITAMIN D3 1 TAB TABLET PO SCH ×2 (09:00→20:45)
[2022-09-21] MEDS: CITALOPRAM HYDROBROMIDE 20 MG TABLET PO SCH (09:01)
[2022-09-21] MEDS: FUROSEMIDE 40 MG/4 ML VIAL IVP SCH ×2 (09:08→20:48)
[2022-09-21 11:20] VITALS: BP_SYST 130
[2022-09-21] MEDS: HYDROcodone/ACETAMIN 5-325 MG TAB (NORCO/ VICODIN) PO PRN ×3 (11:20→23:53)
[2022-09-21 15:31] VITALS: BP_SYST 110
[2022-09-21 20:00] VITALS: BP_SYST 113
[2022-09-21] MEDS: ENOXAPARIN SODIUM 30 MG/0.3 ML SYRINGE SUBCUT SCH (22:58)
[2022-09-22 01:45] VITALS: BP_SYST 120
[2022-09-22] MEDS: PIPERACILLIN/TAZO 3.375/DEX-IS 50 ML IV SCH ×3 (05:51→19:02)
[2022-09-22] MEDS: HYDROcodone/ACETAMIN 5-325 MG TAB (NORCO/ VICODIN) PO PRN ×2 (06:00→19:01)
[2022-09-22 08:31] VITALS: BP_SYST 114
[2022-09-22] MEDS: CALCIUM CARBONATE/VITAMIN D3 1 TAB TABLET PO SCH ×2 (10:19→21:32)
[2022-09-22] MEDS: GABAPENTIN 100 MG CAPSULE PO SCH ×2 (10:19→21:32)
[2022-09-22] MEDS: clonazePAM 0.5 MG TABLET PO SCH ×2 (10:19→21:31)
[2022-09-22] MEDS: CITALOPRAM HYDROBROMIDE 20 MG TABLET PO SCH (10:19)
[2022-09-22] MEDS: FUROSEMIDE 40 MG/4 ML VIAL IVP SCH ×2 (10:20→21:31)
[2022-09-22 12:40] VITALS: BP_SYST 116
[2022-09-22] MEDS: MORPHINE 2 MG/ML INJ. SYRINGE IVP PRN (14:20)
[2022-09-22] MEDS ORDERED: BALSAM PERU/CASTOR OIL 56.7 GM OINT...G. TP ONE (15:15)
[2022-09-22 16:50] VITALS: BP_SYST 115
[2022-09-22 20:00] VITALS: BP_SYST 108
[2022-09-22] MEDS: ENOXAPARIN SODIUM 30 MG/0.3 ML SYRINGE SUBCUT SCH (21:33)
[2022-09-23] MEDS: PIPERACILLIN/TAZO 3.375/DEX-IS 50 ML IV SCH ×3 (00:02→12:04)
[2022-09-23] MEDS: HYDROcodone/ACETAMIN 5-325 MG TAB (NORCO/ VICODIN) PO PRN ×3 (00:02→12:06)
[2022-09-23 01:31] VITALS: BP_SYST 101
[2022-09-23 05:17] LABS: BASOPHILS # (AUTO) 0.1 K/uL (0.0-0.2); BASOPHILS % (AUTO) 1.4 % (0.0-2.0); EOSINOPHILS # (AUTO) 0.2 K/uL (0.0-0.4); EOSINOPHILS % (AUTO) 3.4 % (0.0-4.0); HEMATOCRIT 36.3 % (36-48); HEMOGLOBIN 12.1 g/dL (12.0-16.0); LYMPHOCYTES # (AUTO) 1.3 K/uL (1.0-5.5); LYMPHOCYTES % (AUTO) 19.9 % (20.5-51.5); MEAN CORPUSCULAR HEMOGLOBIN 28 pg (27-31); MEAN CORPUSCULAR HGB CONC 33 % (32-36); MEAN CORPUSCULAR VOLUME 85 fL (79.0-98.0); MONOCYTES # (AUTO) 0.6 K/uL (0.0-1.0); MONOCYTES % (AUTO) 9.7 % (1.7-9.3); NEUTROPHILS # (AUTO) 4.3 K/uL (1.8-7.7); NEUTROPHILS % (AUTO) 65.6 % (40.0-70.0); PLATELET COUNT (AUTO) 273 K/uL (130-430); RED BLOOD CELL COUNT(AUTO) 4.29 MIL/uL (4.2-6.2); RED CELL DISTRIBUTION WIDTH 16.5 % (9.0-15.0); WHITE BLOOD COUNT (AUTO) 6.6 K/uL (4.8-10.8)
[2022-09-23 05:59] LABS: ALBUMIN 2.7 g/dL (3.4-4.8); CALCIUM 8.8 mg/dL (8.4-11.0); CREATININE 3.38 mg/dL (0.55-1.30); TOTAL BILIRUBIN 0.6 mg/dL (0.0-1.0)
[2022-09-23 08:06] VITALS: BP_SYST 101
[2022-09-23 08:35] VITALS: BP_SYST 103
[2022-09-23] MEDS ORDERED: BALSAM PERU/CASTOR OIL 56.7 GM OINT...G. TP SCH (09:00)
[2022-09-23] MEDS: GABAPENTIN 100 MG CAPSULE PO SCH (10:09)
[2022-09-23] MEDS: FUROSEMIDE 40 MG/4 ML VIAL IVP SCH (10:09)
[2022-09-23] MEDS: CALCIUM CARBONATE/VITAMIN D3 1 TAB TABLET PO SCH (10:09)
[2022-09-23] MEDS: clonazePAM 0.5 MG TABLET PO SCH (10:09)
[2022-09-23] MEDS: CITALOPRAM HYDROBROMIDE 20 MG TABLET PO SCH (10:09)
[2022-09-23 12:44] VITALS: BP_SYST 89
[2022-09-23] MEDS: MORPHINE 2 MG/ML INJ. SYRINGE IVP PRN (16:32)
[2022-09-23 17:33] VITALS: BP_SYST 106
[2022-09-23 17:56] VITALS: BP_SYST 122
[2022-09-24] MEDS ORDERED: FUROSEMIDE 20 MG/2 ML VIAL IVP SCH (09:00)
[2022-09-24] MEDS ORDERED: CHOLECALCIFEROL PO SCH (09:00)
== END 2022-09-23 18:40 | DRG 603 ==
LOC: SED 09:22 → SMU 12:11
PROVIDERS: ADMIT Family Medicine; ATTEND Family Medicine
DX: L03.115 Cellulitis of right lower limb (principal); N18.4 Chronic kidney disease, stage 4 (severe); L03.116 Cellulitis of left lower limb; I89.0 Lymphedema, not elsewhere classified; I12.9 Hypertensive chronic kidney disease with stage 1 through stage 4 chronic kidney disease, or unspecified chronic kidney disease; I73.9 Peripheral vascular disease, unspecified; Z60.2 Problems related to living alone; F17.210 Nicotine dependence, cigarettes, uncomplicated; J44.9 Chronic obstructive pulmonary disease, unspecified; Z88.0 Allergy status to penicillin; Z88.5 Allergy status to narcotic agent
CPT/HCPCS: 36415; 71045; 80053; 81000; 83880; 84484; 85025; 87040; 87086; 93005; 94760; 96365; 97116-GP; 97530-GP; 99285; J1650; J1940; J2270; J2543; J3370

== ENCOUNTER 2023-04-13 11:07 | Emergency (ER) | payer OTHER, MEDICAID ==
[~2023-04-13] VITALS: Ht 162.6 cm; Wt 73.5 kg
[~2023-04-13 11:07] MED LIST changes: -BENZ2TAB65 PO; +BENZ2TAB7 PO; +FESO8TAB3 PO; +GABA-529 PO; +HYDR-3919; +MIRT-91 PO
[2023-04-13 11:25] VITALS: BP_SYST 115; PULSE 79; RESP 18; TEMP 98.1; O2SAT 100
[2023-04-13 12:08] LABS: BASOPHILS # (AUTO) 0.1 K/uL (0.0-0.2); BASOPHILS % (AUTO) 1.5 % (0.0-2.0); EOSINOPHILS % (AUTO) 0.1 % (0.0-4.0); HEMATOCRIT 36.2 % (36-48); HEMOGLOBIN 11.6 g/dL (12.0-16.0); LYMPHOCYTES # (AUTO) 0.4 K/uL (1.0-5.5); LYMPHOCYTES % (AUTO) 11.9 % (20.5-51.5); MEAN CORPUSCULAR HEMOGLOBIN 28 pg (27-31); MEAN CORPUSCULAR HGB CONC 32 % (32-36); MEAN CORPUSCULAR VOLUME 86 fL (79.0-98.0); MONOCYTES # (AUTO) 0.4 K/uL (0.0-1.0); MONOCYTES % (AUTO) 11.8 % (1.7-9.3); NEUTROPHILS # (AUTO) 2.6 K/uL (1.8-7.7); NEUTROPHILS % (AUTO) 74.7 % (40.0-70.0); PLATELET COUNT (AUTO) 248 K/uL (130-430); RED BLOOD CELL COUNT(AUTO) 4.22 MIL/uL (4.2-6.2); RED CELL DISTRIBUTION WIDTH 17.5 % (9.0-15.0); WHITE BLOOD COUNT (AUTO) 3.5 K/uL (4.8-10.8)
[2023-04-13 12:11] LABS: INFLUENZA TYPE A Negative (NEGATIVE); INFLUENZA TYPE B NEGATIVE (NEGATIVE)
[2023-04-13 12:20] LABS: ANION GAP 8 (5-15); CALCIUM 10.4 mg/dL (8.4-11.0); CARBON DIOXIDE 31 mmol/L (23-29); CHLORIDE 100 mmol/L (98-107); CREATININE 3.15 mg/dL (0.55-1.30); GLUCOSE 94 mg/dL (74-106); POTASSIUM 3.9 mmol/L (3.5-5.1); SODIUM SERUM 139 mmol/L (136-145); UREA NITROGEN, BLOOD 50 mg/dL (8-21)
[2023-04-13 12:21] LABS: PROTHROMBIN TIME 10.3 SECS (9.5-12.5)
[2023-04-13 12:22] LABS: GFR AFRICAN AMERICAN 19 mL/min (>90); GFR NON AFRICAN-AMERICAN 15 mL/min (>90)
[2023-04-13 12:54] LABS: ALANINE AMINOTRANSFERASE 23 U/L (12-78); ALBUMIN 3.9 g/dL (3.4-4.8); AMYLASE 27 U/L (0-100); ASPARTATE AMINOTRANSFERASE 18 U/L (10-37); BILIRUBIN,DIRECT 0.1 mg/dL (0.0-0.3); LIPASE 13 U/L (16-77); TOTAL BILIRUBIN 0.3 mg/dL (0.0-1.0); TOTAL PROTEIN, SERUM 7.7 g/dL (6.4-8.3)
[2023-04-13] MEDS ORDERED: NIRM1TAB5 PO (13:02)
[2023-04-13] MEDS ORDERED: ALBMDI INH (13:02)
[2023-04-13 13:14] LABS: ACETONE, SERUM NEGATIVE (NEGATIVE)
[2023-04-13 13:15] VITALS: BP_SYST 122; PULSE 80; RESP 20; TEMP 98.1; O2SAT 100
[2023-04-13] MEDS ORDERED: FURO40TA5 PO (17:39)
[2023-04-13] MEDS ORDERED: ESCI20TA38 PO (17:39)
[2023-04-13] MEDS ORDERED: DOXY100C5 PO (17:39)
[2023-04-13] MEDS ORDERED: CEPH-548 PO (17:39)
[2023-04-13] MEDS ORDERED: HEPARIN SODIUM,PORCINE 5,000 UNITS/ML VIAL ONE (23:41)
== END 2023-04-13 13:13 | disposition home or self-care (01) ==
LOC: SED 11:07
DX: U07.1 COVID-19 (principal); J40 Bronchitis, not specified as acute or chronic; N19 Unspecified kidney failure; I10 Essential (primary) hypertension; Z88.6 Allergy status to analgesic agent; Z88.5 Allergy status to narcotic agent; Z88.8 Allergy status to other drugs, medicaments and biological substances; Z79.84 Long term (current) use of oral hypoglycemic drugs; Z79.899 Other long term (current) drug therapy
CPT/HCPCS: 99284; 71045; 87426; 80076; 80048; 82009; 82150; 83690; 85025; 85610; 84484; 36415; 83605; 87804 ×2; 82397; J1644

== ENCOUNTER 2023-11-21 10:56 | Emergency (ER) | payer OTHER, MEDICAID ==
[~2023-11-21] VITALS: Ht 172.7 cm; Wt 95.3 kg
[~2023-11-21 10:56] MED LIST changes: +ALBMDI INH; -ESCI10TA PO; +ESCI20TA38 PO; +FURO40TA5 PO; -GABA-531 PO; -MELO15TA13 PO; +NIRM1TAB5 PO
[2023-11-21 11:17] VITALS: BP_SYST 112; PULSE 69; RESP 18; TEMP 97.7; O2SAT 96
[2023-11-21 11:57] LABS: BASOPHILS # (AUTO) 0.1 K/uL (0.0-0.2); BASOPHILS % (AUTO) 1.2 % (0.0-2.0); EOSINOPHILS # (AUTO) 0.1 K/uL (0.0-0.4); EOSINOPHILS % (AUTO) 2.8 % (0.0-4.0); HEMATOCRIT 34.7 % (36-48); HEMOGLOBIN 11.2 g/dL (12.0-16.0); LYMPHOCYTES # (AUTO) 1.1 K/uL (1.0-5.5); LYMPHOCYTES % (AUTO) 22.8 % (20.5-51.5); MEAN CORPUSCULAR HEMOGLOBIN 28 pg (27-31); MEAN CORPUSCULAR HGB CONC 32 % (32-36); MEAN CORPUSCULAR VOLUME 86 fL (79.0-98.0); MONOCYTES # (AUTO) 0.4 K/uL (0.0-1.0); MONOCYTES % (AUTO) 9.2 % (1.7-9.3); NEUTROPHILS # (AUTO) 3.1 K/uL (1.8-7.7); PLATELET COUNT (AUTO) 245 K/uL (130-430); RED BLOOD CELL COUNT(AUTO) 4.04 MIL/uL (4.2-6.2); RED CELL DISTRIBUTION WIDTH 16.9 % (9.0-15.0); WHITE BLOOD COUNT (AUTO) 4.9 K/uL (4.8-10.8)
[2023-11-21 12:13] LABS: CALCIUM 9.5 mg/dL (8.4-11.0); CREATININE 2.9 mg/dL (0.55-1.30); POTASSIUM 4.7 mmol/L (3.5-5.1)
[2023-11-21] MEDS ORDERED: MUPI1OIN5 TP (12:32)
[2023-11-21] MEDS ORDERED: CEPH-548 PO (12:32)
[2023-11-21 12:55] VITALS: BP_SYST 112; PULSE 69; RESP 18; TEMP 97.7; O2SAT 96
== END 2023-11-21 12:54 | disposition home or self-care (01) ==
LOC: SED 10:56
DX: S50.812A Abrasion of left forearm, initial encounter (principal); D64.9 Anemia, unspecified; I12.9 Hypertensive chronic kidney disease with stage 1 through stage 4 chronic kidney disease, or unspecified chronic kidney disease; N18.9 Chronic kidney disease, unspecified; Z88.5 Allergy status to narcotic agent; Z88.6 Allergy status to analgesic agent; Z88.8 Allergy status to other drugs, medicaments and biological substances; Z79.899 Other long term (current) drug therapy; Z79.2 Long term (current) use of antibiotics; W57.XXXA Bitten or stung by nonvenomous insect and other nonvenomous arthropods, initial encounter; Y93.89 Activity, other specified; Y92.89 Other specified places as the place of occurrence of the external cause; Y99.8 Other external cause status
CPT/HCPCS: 36415; 80048; 85025; 99283